=== PATIENT | female | born 1935 | race Caucasian/White ===

== ENCOUNTER → 2016-06-18 | Outpatient (CLI) | payer MEDICARE ==
[2016-06-18 19:30] LABS: Basophils % (A) 0 %; CHCM 30.6; Eosinophils # (A) 0.3 k/uL (0-0.7); Eosinophils % (A) 3 %; HCT 39.4 % (34.0-46.0); HDW 2.39; HGB 11.8 gm/dL (11.4-16.0); Hypochromasia Slight; Luc # (Auto) 0.13; Luc % (Auto) 1; Lymphocytes # (A) 2.1 k/uL (1.0-4.8); Lymphocytes % (A) 22 %; MCH 26.6 pg (25.0-35.0); MCHC 30.1 g/dL (31.0-37.0); MCV 88.4 fL (80.0-100.0); Mean Platelet Volume 7.9; Monocytes # (A) 0.4 k/uL (0-1.0); Monocytes % (A) 5 %; Neutrophils # (A) 6.4 k/uL (1.3-7.7); Neutrophils % (A) 69 %; RBC 4.45 m/uL (3.80-5.40); RDW 14.6 % (11.5-15.5); WBC 9.4 k/uL (3.8-10.6); WBC (Perox) 10.21
[2016-06-18 19:36] LABS: ALT 26 U/L (9-52); AST 17 U/L (14-36); Alkaline Phosphatase 97 U/L (38-126); Anion Gap 12 mmol/L; Blood Urea Nitrogen 19 mg/dL (7-17); Calcium 10.1 mg/dL (8.4-10.2); Carbon Dioxide 28 mmol/L (22-30); Chloride 102 mmol/L (98-107); Cholesterol 206 mg/dL (<200); Glucose 122 mg/dL (74-99); HDL Cholesterol 39 mg/dL (40-60); Non-African American GFR(MDRD) >60 (>60 ml/min/1.73 sqM); Potassium 4.5 mmol/L (3.5-5.1); Sodium 142 mmol/L (137-145); Total Bilirubin 0.4 mg/dL (0.2-1.3); Total Protein 6.6 g/dL (6.3-8.2); Triglycerides 148 mg/dL (<150)
== END | disposition home or self-care (01) ==
LOC: MMGSC 14:20
PROVIDERS: ATTEND Family Medicine
DX: E11.9 Type 2 diabetes mellitus without complications (principal); I10 Essential (primary) hypertension
CPT/HCPCS: 36415; 80053; 80061; 83036; 84439; 84443; 85025; 99203

== ENCOUNTER 2016-09-21 12:17 | Day surgery (SDC) | payer MEDICARE ==
[2016-09-17 16:06] VITALS: BMI 44.3
[~2016-09-21 12:17] MED LIST: LACTATED RINGERS 1,000 ML IV SCH; LIDOCAINE 1% 20 ML VIAL (10MG/ML) FOR IV START INTRADERMA PRN
[2016-09-21] MEDS: PHENYLEPHRINE 10% OPHTH DROPS 5 ML BTL OP ONE ×3 (14:18→14:31)
[2016-09-21 14:20] VITALS: RESP 18; TEMP 97.9
[2016-09-21] MEDS: CYCLOPENTOLATE 1% OPHTH SOLN 2 ML BTL OP ONE ×3 (14:21→14:33)
[2016-09-21] MEDS: FLURBIPROFEN 0.03% OPHTH DROPS 2.5 ML BTL OP ONE ×2 (14:23→14:29)
[2016-09-21] MEDS ORDERED: BALANCED SALT IRRIG SOLN COMB2 15 ML IRRIG.SOLN IRRIGATION ONE (14:39)
[2016-09-21] MEDS ORDERED: HYALURONATE SODIUM INTRAOCULAR 1 EACH SYRINGE (10MG/ML) INTRAOCULA ONE (14:39)
[2016-09-21 14:42] LABS: Glucose,Whole Blood 117 mg/dL (75-99)
[2016-09-21] MEDS ORDERED: EPINEPHrine (PF) 0.5 ML in BALANCED SALT IRRIG SOLN COMB2 500 ML IRRIGATION ONE (14:42)
[2016-09-21] MEDS ORDERED: PROPOFOL 10 MG/ML 20 ML VIAL IV ONE (14:42)
--- NOTE | 2016-09-21 15:04 | P.OP ---
Date of Procedure: 09/21/16 Preoperative Diagnosis: Postoperative Diagnosis: Procedure(s) Performed: PREOPERATIVE DIAGNOSIS: Cataract, right eye. POSTOPERATIVE DIAGNOSIS: Cataract, right eye. OPERATION: Phacoemulsification cataract, right eye. DESCRIPTION OF PROCEDURE: The patient was taken to the preoperative holding area. Intravenous Propofol was given so as to bring about adequate sedation. The following mixture was given for local anesthesia: 5 mL of 2% lidocaine, 5 mL of 0.75% Marcaine, and 1 mL of Wydase. Approximately 4 mL was injected in the retrobulbar space of the surgical eye. Additional 1 mL was then directed to the temporal area of the surgical eye. This was performed to allow adequate neurological block of the facial muscles. The patient was revived and then taken into the operative room. The patient was prepped and draped in the usual sterile manner for the operative eye. A lid speculum was put into position. The conjunctiva was resected back from the limbus in the 12 o'clock position. Bleeding was controlled with electrocautery. A #69 blade was then used and a half-thickness scleral incision approximately 1-mm posterior to the limbus was made on bare sclera. This was shelved in the clear cornea using a crescent knife. Next a 15-degree blade was used to make a stab incision at the 3 o' clock position at the corneolimbal interface. Keratome blade was then used and the superior wound was extended into the anterior chamber. Viscoelastic was injected into the anterior chamber and to maintain its form. Next, a cystotome was used and a continuous anterior capsulotomy was made without difficulty. Hydrodissection using a blunt cannula and BSS was performed. Phaco probe was then employed and a groove extending from 12 to 6 o'clock in the lens was created. A Hill wand was used through the stab incision so as to perform a divide and conquer technique. Next an irrigation aspiration probe was utilized and any residual cortex was removed from the eye. Again, viscoelastic was injected into the anterior chamber. An Cooper posterior chamber lens implant was placed in the cartridge and injected into the anterior chamber without difficulty. The ForSight Labsey hook was utilized to spin the lens into position and this was again performed without any difficulty. The irrigation and aspiration probe was again employed and any residual viscoelastic was removed from the eye. Then BSS was injected into the limbal stab incision and the anterior chamber re-inflated. The conjunctiva was reapproximated using electrocautery. One drop of 0.25% Timoptic was placed over the corneal along with TobraDex ophthalmic ointment. Two sterile patches and a Leone eye shield were taped into position. The patient was transported to the recovery room in stable condition. Implants: Pathology: none sent Condition: stable Disposition: same day Indications for Procedure: Operative Findings: Description of Procedure:
[2016-09-21 15:29] VITALS: BP 121/64; PULSE 80
[2016-09-21] MEDS ORDERED: TIMOLOL 0.5% OPHTH SOLN (PF) 0.2 ML DROPERETTE OP ONE (23:00)
[2016-09-21] MEDS ORDERED: BUPIVACAINE (PF) 0.75% 5 ML, LIDOCAINE 4% (PF) 5 ML, HYALURONIDASE, HUMAN RECOMB 150 UNIT MISCELLANE ONE ×3 (23:00)
[2016-09-21] MEDS ORDERED: GENTAMICIN/PREDNISOL AC OPHTH OINT 3.5GM OPHTHALMIC ONE (23:00)
== END 2016-09-21 15:50 | disposition home or self-care (01) ==
LOC: OR 12:17
PROVIDERS: ATTEND Ophthalmology
DX: H25.11 Age-related nuclear cataract, right eye (principal); E11.9 Type 2 diabetes mellitus without complications; I10 Essential (primary) hypertension; M19.90 Unspecified osteoarthritis, unspecified site; I69.351 Hemiplegia and hemiparesis following cerebral infarction affecting right dominant side; G47.33 Obstructive sleep apnea (adult) (pediatric); Z99.89 Dependence on other enabling machines and devices; E66.01 Morbid (severe) obesity due to excess calories; K21.9 Gastro-esophageal reflux disease without esophagitis; Z79.899 Other long term (current) drug therapy; Z79.891 Long term (current) use of opiate analgesic; Z79.84 Long term (current) use of oral hypoglycemic drugs; Z88.6 Allergy status to analgesic agent; Z88.8 Allergy status to other drugs, medicaments and biological substances
CPT/HCPCS: 66984; V2632; J2001; J3470; J0171; J2704

== ENCOUNTER → 2017-01-07 | Outpatient (CLI) | payer MEDICARE | END | disposition home or self-care (01) | LOC: LABPAT 11:36 | PROVIDERS: ATTEND Orthopaedic Surgery | DX: Z01.812 Encounter for preprocedural laboratory examination (principal) | CPT/HCPCS: 87070 ==

== ENCOUNTER → 2017-05-06 | Outpatient (CLI) | payer MEDICARE ==
[2017-05-06 20:35] LABS: Basophils # (A) 0.1 k/uL (0-0.2); Basophils % (A) 1 %; Eosinophils # (A) 0.2 k/uL (0-0.7); Eosinophils % (A) 2 %; HGB 11.9 gm/dL (11.4-16.0); Hypochromasia Marked; Lymphocytes # (A) 1.8 k/uL (1.0-4.8); Lymphocytes % (A) 17 %; MCH 23.5 pg (25.0-35.0); MCHC 29.6 g/dL (31.0-37.0); MCV 79.4 fL (80.0-100.0); Mean Platelet Volume 8.5; Monocytes # (A) 0.5 k/uL (0-1.0); Monocytes % (A) 5 %; Neutrophils % (A) 75 %; Platelet Count 342 k/uL (150-450); RBC 5.03 m/uL (3.80-5.40); RDW 14.9 % (11.5-15.5); WBC 10.6 k/uL (3.8-10.6)
[2017-05-06 21:00] LABS: Albumin 3.6 g/dL (3.5-5.0); Potassium 4.3 mmol/L (3.5-5.1); Total Bilirubin 0.4 mg/dL (0.2-1.3); Total Protein 6.4 g/dL (6.3-8.2)
[2017-05-07 04:47] LABS: Hemoglobin A1C 8.3 % (4.0-6.0)
== END ==
LOC: MMGSC 12:25
PROVIDERS: ATTEND Family Medicine
DX: E11.9 Type 2 diabetes mellitus without complications (principal); I48.91 Unspecified atrial fibrillation; E78.5 Hyperlipidemia, unspecified
CPT/HCPCS: 36415; 80053; 80061; 83036; 85025

== ENCOUNTER 2017-05-19 02:56 | Inpatient (IN) | payer MEDICARE ==
[2017-05-19] MEDS ORDERED: PANTOPRAZOLE 40 MG/10 ML VIAL IVP ONE (03:34)
[2017-05-19] MEDS ORDERED: SODIUM CHLORIDE 0.9% 1,000 ML IV ONE ×2 (03:34→13:44)
[2017-05-19] MEDS ORDERED: ONDANSETRON 4 MG/2 ML VIAL IVP STA (03:51)
--- NOTE | 2017-05-19 03:51 | ED ---
GI Bleed HPI - General Chief complaint: GI Bleed Stated complaint: Vomiting Time Seen by Provider: 05/19/17 03:29 Source: patient, family Mode of arrival: wheelchair Limitations: no limitations - History of Present Illness Initial comments: This is an 81-year-old female with a history of atrial fibrillation and CVA on L course who presents emergency department for coffee-ground emesis. The patient states that she was in her normal state of health yesterday until later in the afternoon when she started having some generalized malaise and not feeling well. She had 2 episodes of dark coffee ground emesis at home. She also had one dark loose bowel movement per family. She denies any lightheadedness however does admit to a little bit of dizziness. No chest pain or palpitations. No shortness of breath. States he does not have a history of peptic ulcer disease or GI bleed. Denies any abdominal discomfort. No other acute complaints at this time. - Related Data Home Medications Medication Instructions Recorded Confirmed Cyanocobalamin (Vitamin B-12) 1,000 mcg PO DAILY 09/17/16 01/18/17 [Vitamin B-12] Gabapentin [Neurontin] 300 mg PO BID 09/17/16 01/18/17 Hydrochlorothiazide 25 mg PO QAM 09/17/16 01/18/17 Insulin Glargine [Lantus] 38 unit SQ HS 09/17/16 01/18/17 LORazepam [Ativan] 1 mg PO TID PRN 09/17/16 01/18/17 Methocarbamol [Robaxin-750] 750 mg PO BID PRN 09/17/16 01/18/17 Sertraline HCl [Zoloft] 50 mg PO QAM 09/17/16 01/18/17 amLODIPine BESYLATE [Norvasc] 10 mg PO QAM 09/17/16 01/18/17 glipiZIDE [Glucotrol] 10 mg PO AC-BID 09/17/16 01/18/17 Albuterol Sulfate [Proair Hfa] 1 - 2 puff INHALATION RT-Q4H PRN 01/13/17 Apixaban [Eliquis] 5 mg PO BID 01/13/17 01/18/17 Fluticasone Nasal [place] [Flonase 2 spr EA NOSTRIL DAILY PRN 01/13/17 01/18/17 Nasal [place]] Furosemide [Lasix] 20 mg PO DAILY PRN 01/13/17 01/18/17 Metoprolol Tartrate [Lopressor] 25 mg PO HS 01/13/17 01/18/17 Metoprolol Tartrate [Lopressor] 50 mg PO QAM 01/13/17 01/18/17 Ramipril [Altace] 10 mg PO BID 01/13/17 01/18/17 Previous Rx's Medication Instructions Recorded oxyCODONE HCL/ACETAMINOPHEN 1 - 2 tab PO Q6HR PRN #60 tab 01/20/17 [Percocet 5-325 mg] Allergies Allergy/AdvReac Type Severity Reaction Status Date / Time atorvastatin AdvReac Unknown Verified 05/19/17 03:04 ibuprofen [From Motrin] AdvReac Abdominal Verified 05/19/17 03:04 Pain Lyrica Allergy Nystaigmus Uncoded 05/19/17 03:04 Review of Systems ROS Statement: Those systems with pertinent positive or pertinent negative responses have been documented in the HPI. ROS Other: All systems not noted in ROS Statement are negative. Past Medical History Past Medical History: Atrial Fibrillation, CVA/TIA, Diabetes Mellitus, Eye Disorder, Hyperlipidemia, Hypertension, Neurologic Disorder, Osteoarthritis (OA) , Sleep Apnea/CPAP/BIPAP Additional Past Medical History / Comment(s): Stroke in 2005, uses C-PAP daily. migraines History of Any Multi-Drug Resistant Organisms: MRSA Date of last positivie culture/infection: 12/2016 MDRO Source:: nasal Past Surgical History: Hysterectomy Additional Past Surgical History / Comment(s): R knee replacement, L foot surgery, Hemorrhoidectomy,rt cataract, LEFT KNEE ARTHROPLASTY, Past Anesthesia/Blood Transfusion Reactions: No Reported Reaction Additional Past Anesthesia/Blood Transfusion Reaction / Comment(s): no complications with prior blood transfusion Past Psychological History: No Psychological Hx Reported Smoking Status: Never smoker Past Alcohol Use History: None Reported Past Drug Use History: None Reported - Past Family History Mother Family Medical History: CVA/TIA Father Family Medical History: Myocardial Infarction ([place]) Additional Family Medical History / Comment(s): at age 59 General Exam - General Exam Comments Initial Comments: Constitutional: Awake alert Appears comfortable Head: Normocephalic atraumatic Eyes: no conjunctival injection No scleral icterus EOMI, no conjunctival pallor Neck: No JVD Supple Heart: Regular rate rhythm normal S1-S2 no murmurs Lungs: Clear to auscultation bilaterally No wheezing No rales Abdomen: Soft nondistended nontender Extremities: Non edematous DP pulses intact Radial pulses intact Neuro: A&Ox3 No focal neurologic deficits Psych: Appropriate mood and affect Limitations: no limitations Course Vital Signs 05/19/17 05/19/17 05/19/17 02:59 04:21 05:51 Temperature 98.1 F 99.1 F Pulse Rate 84 70 70 Respiratory 18 18 18 Rate Blood Pressure 127/58 153/81 156/67 O2 Sat by Pulse 99 100 100 Oximetry - Reevaluation(s) Reevaluation #1: 05/19/17 03:51 EKG is showing what appears to be sinus rhythm with a rate of 79. P waves are difficult to make out however V1 does appear to have regular P waves. QTC is 458. There is no abnormal ST segment changes or T-wave inversions. Other intervals appear normal and no ectopy. Medical Decision Making - Medical Decision Making This is [id number] female who presents emergency department for coffee-ground emesis. Hemoglobin was noted to be 2 g lower than normal. Patient also has mild acute kidney injury. She was seen vomiting coffee grounds in the emergency department. Was started on protonix. Initial lactate was 4.2 which improved to 2.5 after IV fluids. The patient is hemodynamically stable. Will admit to general medical floor at this time. - Lab Data Result diagrams: 05/19/17 03:35 05/19/17 03:35 Lab Results 05/19/17 05/19/17 05/19/17 Range/Units 03:35 03:35 03:35 WBC 15.3 H (3.8-10.6) k/uL RBC 3.79 L (3.80-5.40) m/uL Hgb 9.0 L D (11.4-16.0) gm/dL Hct 29.6 L (34.0-46.0) % MCV 78.3 L (80.0-100.0) fL MCH 23.7 L (25.0-35.0) pg MCHC 30.3 L (31.0-37.0) g/dL RDW 16.7 H (11.5-15.5) % Plt Count 355 (150-450) k/uL Neutrophils % 88 % Lymphocytes % 8 % Monocytes % 2 % Eosinophils % 1 % Basophils % 0 % Neutrophils # 13.5 H (1.3-7.7) k/uL Lymphocytes # 1.2 (1.0-4.8) k/uL Monocytes # 0.3 (0-1.0) k/uL Eosinophils # 0.1 (0-0.7) k/uL Basophils # 0.0 (0-0.2) k/uL Hypochromasia Moderate Anisocytosis Slight Microcytosis Slight PT (9.0-12.0) sec INR (<1.2) APTT (22.0-30.0) sec Sodium 139 (137-145) mmol/L Potassium 5.4 H (3.5-5.1) mmol/L Chloride 103 (98-107) mmol/L Carbon Dioxide 21 L (22-30) mmol/L Anion Gap 15 mmol/L BUN 58 H (7-17) mg/dL Creatinine 1.10 H (0.52-1.04) mg/dL Est GFR (CKD-EPI)AfAm 55 (>60 ml/min/1.73 sqM) Est GFR (CKD-EPI)NonAf 48 (>60 ml/min/1.73 sqM) Glucose 380 H (74-99) mg/dL Plasma Lactic Acid Newton (0.7-2.0) mmol/L Calcium 9.4 (8.4-10.2) mg/dL Magnesium 1.7 (1.6-2.3) mg/dL Total Bilirubin 0.3 (0.2-1.3) mg/dL AST 13 L (14-36) U/L ALT 16 (9-52) U/L Alkaline Phosphatase 82 (38-126) U/L CK-MB (CK-2) 1.3 (0.0-2.4) ng/mL Troponin I <0.012 (0.000-0.034) ng/mL Total Protein 5.9 L (6.3-8.2) g/dL Albumin 3.5 (3.5-5.0) g/dL Lipase 63 (23-300) U/L Blood Type Blood Type Recheck Antibody Screen Spec Expiration Date 05/19/17 05/19/17 05/19/17 Range/Units 03:35 03:35 03:35 WBC (3.8-10.6) k/uL RBC (3.80-5.40) m/uL Hgb (11.4-16.0) gm/dL Hct (34.0-46.0) % MCV (80.0-100.0) fL MCH (25.0-35.0) pg MCHC (31.0-37.0) g/dL RDW (11.5-15.5) % Plt Count (150-450) k/uL Neutrophils % % Lymphocytes % % Monocytes % % Eosinophils % % Basophils % % Neutrophils # (1.3-7.7) k/uL Lymphocytes # (1.0-4.8) k/uL Monocytes # (0-1.0) k/uL Eosinophils # (0-0.7) k/uL Basophils # (0-0.2) k/uL Hypochromasia Anisocytosis Microcytosis PT 10.8 (9.0-12.0) sec INR 1.1 (<1.2) APTT 22.7 (22.0-30.0) sec Sodium (137-145) mmol/L Potassium (3.5-5.1) mmol/L Chloride (98-107) mmol/L Carbon Dioxide (22-30) mmol/L Anion Gap mmol/L BUN (7-17) mg/dL Creatinine (0.52-1.04) mg/dL Est GFR (CKD-EPI)AfAm (>60 ml/min/1.73 sqM) Est GFR (CKD-EPI)NonAf (>60 ml/min/1.73 sqM) Glucose (74-99) mg/dL Plasma Lactic Acid Newton 4.2 H* (0.7-2.0) mmol/L Calcium (8.4-10.2) mg/dL Magnesium (1.6-2.3) mg/dL Total Bilirubin (0.2-1.3) mg/dL AST (14-36) U/L ALT (9-52) U/L Alkaline Phosphatase (38-126) U/L CK-MB (CK-2) (0.0-2.4) ng/mL Troponin I (0.000-0.034) ng/mL Total Protein (6.3-8.2) g/dL Albumin (3.5-5.0) g/dL Lipase (23-300) U/L Blood Type O Positive Blood Type Recheck No Antibody Screen NEGATIVE Spec Expiration Date 05/22/2017233405/19/17 Range/Units 05:00 WBC (3.8-10.6) k/uL RBC (3.80-5.40) m/uL Hgb (11.4-16.0) gm/dL Hct (34.0-46.0) % MCV (80.0-100.0) fL MCH (25.0-35.0) pg MCHC (31.0-37.0) g/dL RDW (11.5-15.5) % Plt Count (150-450) k/uL Neutrophils % % Lymphocytes % % Monocytes % % Eosinophils % % Basophils % % Neutrophils # (1.3-7.7) k/uL Lymphocytes # (1.0-4.8) k/uL Monocytes # (0-1.0) k/uL Eosinophils # (0-0.7) k/uL Basophils # (0-0.2) k/uL Hypochromasia Anisocytosis Microcytosis PT (9.0-12.0) sec INR (<1.2) APTT (22.0-30.0) sec Sodium (137-145) mmol/L Potassium (3.5-5.1) mmol/L Chloride (98-107) mmol/L Carbon Dioxide (22-30) mmol/L Anion Gap mmol/L BUN (7-17) mg/dL Creatinine (0.52-1.04) mg/dL Est GFR (CKD-EPI)AfAm (>60 ml/min/1.73 sqM) Est GFR (CKD-EPI)NonAf (>60 ml/min/1.73 sqM) Glucose (74-99) mg/dL Plasma Lactic Acid Newton 2.5 H* (0.7-2.0) mmol/L Calcium (8.4-10.2) mg/dL Magnesium (1.6-2.3) mg/dL Total Bilirubin (0.2-1.3) mg/dL AST (14-36) U/L ALT (9-52) U/L Alkaline Phosphatase (38-126) U/L CK-MB (CK-2) (0.0-2.4) ng/mL Troponin I (0.000-0.034) ng/mL Total Protein (6.3-8.2) g/dL Albumin (3.5-5.0) g/dL Lipase (23-300) U/L Blood Type Blood Type Recheck Antibody Screen Spec Expiration Date Disposition Clinical Impression: Upper GI bleed, Anemia Disposition: ADMITTED IP TO THIS [facility] Condition: Stable
[2017-05-19 03:56] LABS: Anisocytosis Slight; Basophils % (A) 0 %; Eosinophils # (A) 0.1 k/uL (0-0.7); Eosinophils % (A) 1 %; HCT 29.6 % (34.0-46.0); Hypochromasia Moderate; Lymphocytes # (A) 1.2 k/uL (1.0-4.8); Lymphocytes % (A) 8 %; MCH 23.7 pg (25.0-35.0); MCHC 30.3 g/dL (31.0-37.0); MCV 78.3 fL (80.0-100.0); Mean Platelet Volume 8.5; Microcytosis Slight; Monocytes # (A) 0.3 k/uL (0-1.0); Monocytes % (A) 2 %; Neutrophils # (A) 13.5 k/uL (1.3-7.7); Neutrophils % (A) 88 %; Platelet Count 355 k/uL (150-450); RBC 3.79 m/uL (3.80-5.40); RDW 16.7 % (11.5-15.5); WBC 15.3 k/uL (3.8-10.6)
[2017-05-19 04:11] LABS: Albumin 3.5 g/dL (3.5-5.0); Calcium 9.4 mg/dL (8.4-10.2); Magnesium 1.7 mg/dL (1.6-2.3); Potassium 5.4 mmol/L (3.5-5.1); Total Bilirubin 0.3 mg/dL (0.2-1.3); Total Protein 5.9 g/dL (6.3-8.2)
[2017-05-19 04:12] LABS: INR 1.1 (<1.2); Partial Thromboplastin Time 22.7 sec (22.0-30.0); Prothrombin Time 10.8 sec (9.0-12.0)
[2017-05-19] MEDS ORDERED: SODIUM CHLORIDE 0.9% 500 ML IV ONE (04:17)
[2017-05-19] MEDS ORDERED: NALOXONE 0.4 MG/ML 1 ML VIAL IV PRN (04:26)
[2017-05-19] MEDS: SODIUM CHLORIDE 0.9% 1,000 ML IV SCH (04:27)
[2017-05-19 04:29] LABS: Creatine Kinase MB 1.3 ng/mL (0.0-2.4); Troponin I <0.012 ng/mL (0.000-0.034)
--- NOTE | 2017-05-19 07:07 | P.HPIM ---
History of Present Illness H&P Date: 05/19/17 Chief Complaint: Coffee Ground emesis 81-year-old female with history of atrial fibrillation on anticoagulation. History of stroke wirh right residual weakness Patient presented due to sudden onset of coffee-ground emesis and feeling generalized weakness and malaise. Patient reports that she was at her normal status of health up until yesterday when suddenly she felt weak and tired and then had 2 episodes of coffee-ground vomiting without any associated abdominal pain. She then started feeling dizzy but denies any chest pain denies any shortness of breath denies any palpitations. She also had one episodes of loose dark stool. She denies having any history of GI bleed, however, she does report remote history of peptic ulcers in the past. denies taking any NSAIDs. Eliquis was started recently , 3 weeks ago for afib. In the emergency department, she was found to have dropped her hemoglobin 2 g below her baseline, and some of her electrolytes were abnormal along with lactic acidosis for which she received IV fluid resuscitation and admitted to the medical floor. Review of Systems Constitutional: Patient denies fever, denies chills, denies night sweating, denies significant weight changes Eyes: Patient denies visual changes, denies eye pain ENT: Patient denies ear pain, denies rhinorrhea, denies sore throat Cardiovascular: Patient denies chest pain, denies exertional dyspnea, denies peripheral leg edema, denies orthopnea, denies paroxysmal nocturnal dyspnea Respiratory:Patient denies cough, denies wheezing, denies shortness of breath Gastrointestinal: Patient denies diarrhea, denies constipation, denies nausea , denies abdominal pain, otherwise as mentioned in HPI Genitourinary: Patient denies dysuria, denies hematuria, denies changes in urinary habits, denies genital lesions Musculoskeletal: Patient reports generalized joint pains Psychiatric: Patient denies changes in mood or memory, denies suicidal ideation, denies anxiety Endocrine: Patient denies heat intolerance, denies cold intolerance, denies excessive thirst, denies polyuria Neurological: Patient denies focal neurologic deficits, denies weakness, denies numbness, denies tingling Hem/Lymphatic: Patient denies bleeding tendency, denies bruising, denies swollen lymph glands Allergic/Immun: Patient denies recent allergic reactions Skin: Patient denies rashes, denies pruritis, denies ulcers Past Medical History Past Medical History: Atrial Fibrillation, CVA/TIA, Diabetes Mellitus, Eye Disorder, Hyperlipidemia, Hypertension, Neurologic Disorder, Osteoarthritis (OA) , Sleep Apnea/CPAP/BIPAP Additional Past Medical History / Comment(s): Stroke in 2006, uses C-PAP daily. migraines History of Any Multi-Drug Resistant Organisms: MRSA Date of last positivie culture/infection: 12/2016 MDRO Source:: nasal Past Surgical History: Hysterectomy Additional Past Surgical History / Comment(s): R knee replacement, L foot surgery, Hemorrhoidectomy,rt cataract, LEFT KNEE ARTHROPLASTY, Past Anesthesia/Blood Transfusion Reactions: No Reported Reaction Additional Past Anesthesia/Blood Transfusion Reaction / Comment(s): no complications with prior blood transfusion Past Psychological History: No Psychological Hx Reported Smoking Status: Never smoker Past Alcohol Use History: None Reported Past Drug Use History: None Reported - Past Family History Mother Family Medical History: CVA/TIA Father Family Medical History: Myocardial Infarction ([place]) Additional Family Medical History / Comment(s): at age 59 Medications and Allergies Home Medications Medication Instructions Recorded Confirmed Type Cyanocobalamin (Vitamin B-12) 1,000 mcg PO DAILY 09/17/16 01/18/17 History [Vitamin B-12] Gabapentin [Neurontin] 300 mg PO BID 09/17/16 01/18/17 History Hydrochlorothiazide 25 mg PO QAM 09/17/16 01/18/17 History Insulin Glargine [Lantus] 38 unit SQ HS 09/17/16 01/18/17 History LORazepam [Ativan] 1 mg PO TID PRN 09/17/16 01/18/17 History Methocarbamol [Robaxin-750] 750 mg PO BID PRN 09/17/16 01/18/17 History Sertraline HCl [Zoloft] 50 mg PO QAM 09/17/16 01/18/17 History amLODIPine BESYLATE [Norvasc] 10 mg PO QAM 09/17/16 01/18/17 History glipiZIDE [Glucotrol] 10 mg PO AC-BID 09/17/16 01/18/17 History Albuterol Sulfate [Proair Hfa] 1 - 2 puff INHALATION RT-Q4H PRN 01/13/17 History Apixaban [Eliquis] 5 mg PO BID 01/13/17 01/18/17 History Fluticasone Nasal [place] [Flonase 2 spr EA NOSTRIL DAILY PRN 01/13/17 01/18/17 History Nasal [place]] Furosemide [Lasix] 20 mg PO DAILY PRN 01/13/17 01/18/17 History Metoprolol Tartrate [Lopressor] 25 mg PO HS 01/13/17 01/18/17 History Metoprolol Tartrate [Lopressor] 50 mg PO QAM 01/13/17 01/18/17 History Ramipril [Altace] 10 mg PO BID 01/13/17 01/18/17 History oxyCODONE HCL/ACETAMINOPHEN 1 - 2 tab PO Q6HR PRN #60 tab 01/20/17 Rx [Percocet 5-325 mg] Allergies Allergy/AdvReac Type Severity Reaction Status Date / Time atorvastatin AdvReac Unknown Verified 05/19/17 03:04 ibuprofen [From Motrin] AdvReac Abdominal Verified 05/19/17 03:04 Pain Lyrica Allergy Nystaigmus Uncoded 05/19/17 03:04 Physical Exam Vitals: Vital Signs Temp Pulse Resp BP Pulse Ox 05/19/17 05:51 99.1 F 70 18 156/67 100 05/19/17 04:21 70 18 153/81 100 05/19/17 02:59 98.1 F 84 18 127/58 99 Intake and Output 05/18/17 05/18/17 05/19/17 14:59 22:59 06:59 Other: Weight 128.367 kg Constitutional: No acute distress, conversant, pleasant Eyes: Anicteric sclerae, moist conjunctiva, no lid-lag Pupils equal round reactive to light ENMT: NC/AT Oropharynx clear, no erythema, exudates Neck: Supple, FROM, no masses, or JVD No carotid bruits No thyromegaly Lungs: Clear to auscultation Clear to percussion Normal respiratory effort, no accessory muscle use Cardiovascular: Heart regular in rate and rhythm, No murmurs, gallops, or rubs No peripheral edema Abdominal: Soft Nontender, no guarding, rebound or rigidity Abdomen moving with respiration Normoactive bowel sounds No hepatomegaly, No splenomegaly No palpable mass No abdominal wall hernia noted Skin: Normal temperature, tone, texture, turgor No induration No subcutaneous nodules No rash, lesions No ulcers Extremities: No digital cyanosis No clubbing Pedal pulses intact and symmetrical Radial pulses intact and symmetrical No calf tenderness Psychiatric: Alert and oriented to person, place and time Appropriate affect fair judgment Neuro Muscles Strength 5/5 LUE and LLE, 2/5 RUE, 4/5 RLE Sensation to light touch grossly present throughout Cranial nerves II-XII grossly intact No focal sensory deficits Lymphatics: no palpable cervical or supraclavicular , or inguinal lymph nodes Results CBC & Chem 7: 05/19/17 03:35 05/19/17 03:35 Labs: Abnormal Lab Results - Last 24 Hours (Table) 05/19/17 05/19/17 05/19/17 Range/Units 03:35 03:35 03:35 WBC 15.3 H (3.8-10.6) k/uL RBC 3.79 L (3.80-5.40) m/uL Hgb 9.0 L D (11.4-16.0) gm/dL Hct 29.6 L (34.0-46.0) % MCV 78.3 L (80.0-100.0) fL MCH 23.7 L (25.0-35.0) pg MCHC 30.3 L (31.0-37.0) g/dL RDW 16.7 H (11.5-15.5) % Neutrophils # 13.5 H (1.3-7.7) k/uL Potassium 5.4 H (3.5-5.1) mmol/L Carbon Dioxide 21 L (22-30) mmol/L BUN 58 H (7-17) mg/dL Creatinine 1.10 H (0.52-1.04) mg/dL Glucose 380 H (74-99) mg/dL Plasma Lactic Acid Newton 4.2 H* (0.7-2.0) mmol/L AST 13 L (14-36) U/L Total Protein 5.9 L (6.3-8.2) g/dL 05/19/17 Range/Units 05:00 WBC (3.8-10.6) k/uL RBC (3.80-5.40) m/uL Hgb (11.4-16.0) gm/dL Hct (34.0-46.0) % MCV (80.0-100.0) fL MCH (25.0-35.0) pg MCHC (31.0-37.0) g/dL RDW (11.5-15.5) % Neutrophils # (1.3-7.7) k/uL Potassium (3.5-5.1) mmol/L Carbon Dioxide (22-30) mmol/L BUN (7-17) mg/dL Creatinine (0.52-1.04) mg/dL Glucose (74-99) mg/dL Plasma Lactic Acid [place] 2.5 H* (0.7-2.0) mmol/L AST (14-36) U/L Total Protein (6.3-8.2) g/dL Assessment and Plan Assessment: 81-year-old female with history of atrial fibrillation on anticoagulation presented with sudden onset of coffee-ground emesis and black loose stool suspected to have GI bleeding admitted for further care. Patient does recall remote history of peptic ulcer disease in the past, however she denies taking any NSAIDs or aspirin. She was recently started on Eliquis 3 weeks ago for her underlying A. fib. Plan: #Acute symptomatic blood loss anemia #Acute GI bleeding Keep patient nothing by mouth Close monitoring of hemoglobin every 8 hours Protonix IV twice a day GI consultation Hold anticoagulation IV fluid hydration Close monitoring of vital signs #Acute kidney injury most likely secondary to ATN from prerenal hypoperfusion secondary to GI bleed Avoid nephrotoxic medications Hold MADELYN inhibitor's IV fluid hydration Monitor renal function #Acute hyperkalemia, asymptomatic Repeat renal function after IV fluid hydration EKG showed no acute changes related to hyperkalemia #Acute lactic acidosis secondary to hypoperfusion from GI bleeding This is resolved after aggressive IV fluid hydration #History of diabetes mellitus currently hyperglycemic Continue with monitoring of blood sugar before meals at bedtime Insulin sliding scale Levemir 10 units #Hypertension currently controlled Continue with metoprolol #Paroxysmal atrial fibrillation on anticoagulation currently rate controlled and in sinus rhythm Continue with metoprolol Anticoagulation on hold Continue with amiodarone #History of CVA With residual right-sided weakness #DVT prophylaxis with SCDs due to GI bleed Surrogate decision-maker: Patient daughter Dr. Kari Ugalde CODE STATUS full code DVT prophylaxis: SCD Discussed with: Patient, ER, RN Anticipated discharge:> [address]: Home A total of 55 minutes were spent on the care of this complex patient more than 50% of the time was spent in counseling and care coordination. Sepsis - Sepsis Sepsis Focused Exam #1 Sepsis Focused Exam Date: 05/19/17 Sepsis Focused Exam Time: 06:35 Sepsis Focused Exam Complete: Yes Vital Signs & RN Notes Reviewed: Yes Capillary Refill: < 2 Seconds: Fingers, Toes Peripheral Pulses: Normal: Radial (R), Radial (L), Posterior Tibialis (R), Posterior Tibialis (L), Dorsalis Pedis (R), Dorsalis Pedis (L) Skin Color: Normal for Patient Respiratory Exam: normal lung sounds Cardiovascular Exam: regular rate, normal rhythm, normal heart sounds
[2017-05-19 07:34] LABS: Glucose,Whole Blood 369 mg/dL (75-99)
[2017-05-19 08:05] LABS: Calcium 8.5 mg/dL (8.4-10.2); Potassium 5.8 mmol/L (3.5-5.1)
[2017-05-19 08:10] LABS: Anisocytosis Slight; Basophils % (A) 0 %; Eosinophils % (A) 0 %; HCT 25.2 % (34.0-46.0); Hypochromasia Moderate; Lymphocytes # (A) 1.3 k/uL (1.0-4.8); Lymphocytes % (A) 10 %; MCH 23.7 pg (25.0-35.0); MCHC 29.9 g/dL (31.0-37.0); MCV 79.2 fL (80.0-100.0); Mean Platelet Volume 7.2; Monocytes # (A) 0.3 k/uL (0-1.0); Monocytes % (A) 2 %; Neutrophils # (A) 11.9 k/uL (1.3-7.7); Neutrophils % (A) 87 %; Platelet Count 293 k/uL (150-450); RBC 3.18 m/uL (3.80-5.40); RDW 16.1 % (11.5-15.5); WBC 13.8 k/uL (3.8-10.6)
[2017-05-19 08:32] LABS: HGB 7.5 gm/dL (11.4-16.0)
[2017-05-19] MEDS: INSULIN DETEMIR 100 UNIT/ML 10 ML VIAL SQ SCH (08:38)
[2017-05-19] MEDS: MORPHINE SULFATE/PF 10MG/10ML VL IVP PRN (08:39)
[2017-05-19] MEDS: INSULIN ASPART 100 UNIT/ML 1 ML 10 ML VIAL SQ SCH ×4 (08:39→20:57)
[2017-05-19] MEDS: SERTRALINE 50 MG TAB PO SCH (08:43)
[2017-05-19] MEDS: AMIODARONE 200 MG TAB PO SCH ×2 (08:46→20:57)
[2017-05-19] MEDS ORDERED: METOPROLOL TARTRATE 50 MG TAB PO SCH ×2 (09:00)
[2017-05-19] MEDS ORDERED: amLODIPine 10 MG TAB PO SCH (09:00)
--- NOTE | 2017-05-19 09:53 | P.CONS ---
History of Present Illness - Reason for Consult Consult date: 05/19/17 Hematemesis Requesting physician: Osman Deras - History of Present Illness 81-year-old female with a history of atrial fibrillation maintained on Eliquis, asthma, CVA/TIA, diabetes mellitus, hypertension, morbid obesity, hyperlipidemia , sleep apnea, lower extremity cellulitis, anxiety and depression. Patient presented with acute hematemesis and melena started yesterday. Patient's last esophagus was at 1 PM yesterday. Last night around 9 PM she had a large blood tinged emesis mixed coffee-ground red, as well as a large melanotic stool earlier this morning. Minimal abdominal discomfort. No history of EGD or Suresh ulcer disease. Last colonoscopy 10-15 years ago. According to the patient's daughter hemoglobin was in the 11 range a few months ago. Admission hemoglobin 9.0. presently 7.5. MCV 79.2. INR 1.1. Platelet 293. BUN 61. Creatinine 1.0. Potassium 5.8. Sodium 139. No aspirin or NSAIDs. No alcoholism. Review of Systems Constitutional: Denies fever, chills, sweats, weight gain, or loss. HEENT: Negative for migraines, blurred vision or loss, earaches, drainage, tinnitus, oral mucosal lesions, dysphagia, or odynophagia. CARDIAC: Atrial fibrillation. Hypertension. Hyperlipidemia. Negative for chest pain, arrhythmias, or palpitation. RESPIRATORY: Asthma. Sleep apnea. Negative for shortness of breath, hemoptysis , cough, or sputum production. GI: See HPI for pertinent findings. : Negative for hematuria, urgency, frequency, polyuria, or dysuria. GYNc: Denies possibility of . Negative vaginal discharge. MUSCULOSKELETAL: Negative for muscle aches, swelling, arthritis, and arthralgias. NEUROLOGIC: History of CVA/TIA. ENDOCRINE: Diabetes mellitus. Negative for thyroid problems. SKIN: History of lower external cellulitis. Negative for rash or itching. PSYCHIATRIC: History of anxiety and depression. 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 History of Any Multi-Drug Resistant Organisms: MRSA Year Discovered:: 12/2016 MDRO Source:: nasal Past Surgical History: Hysterectomy, Joint Replacement, Orthopedic Surgery Additional Past Surgical History / Comment(s): Colonoscopy 10 yrs ago, R/L knee replacement, L foot surgery for bunionectomy, hemorrhoidectomy, rt cataract. Past Anesthesia/Blood Transfusion Reactions: No Reported Reaction Additional Past Anesthesia/Blood Transfusion Reaction / Comm: no complications with prior blood transfusion Smoking Status: Never smoker - Past Family History Mother Family Medical History: CVA/TIA Additional Family Medical History / Comment(s): Mother of a CVA at the age of 77yrs. Father Family Medical History: Myocardial Infarction ([place]) Additional Family Medical History / Comment(s): Father had his first [place] at the age of 49yrs and at age 59 from a [place]. Medications and Allergies Home Medications Medication Instructions Recorded Confirmed Type Cyanocobalamin (Vitamin B-12) 1,000 mcg PO DAILY 09/17/16 05/19/17 History [Vitamin B-12] Gabapentin [Neurontin] 300 mg PO BID 09/17/16 05/19/17 History Hydrochlorothiazide 25 mg PO QAM 09/17/16 05/19/17 History Insulin Glargine [Lantus] 40 unit SQ HS 09/17/16 05/19/17 History LORazepam [Ativan] 1 mg PO TID PRN 09/17/16 05/19/17 History Methocarbamol [Robaxin-750] 750 mg PO TID 09/17/16 05/19/17 History Sertraline HCl [Zoloft] 75 mg PO QAM 09/17/16 05/19/17 History amLODIPine BESYLATE [Norvasc] 10 mg PO QAM 09/17/16 05/19/17 History glipiZIDE [Glucotrol] 10 mg PO AC-BID 09/17/16 05/19/17 History Albuterol Sulfate [Proair Hfa] 2 puff INHALATION RT-Q4H PRN 01/13/17 05/19/17 History Apixaban [Eliquis] 5 mg PO BID 01/13/17 05/19/17 History Fluticasone Nasal [place] [Flonase 1 spr EA NOSTRIL DAILY PRN 01/13/17 05/19/17 History Nasal [place]] Furosemide [Lasix] 20 mg PO DAILY PRN 01/13/17 05/19/17 History Metoprolol Tartrate [Lopressor] 75 mg PO QAM 01/13/17 05/19/17 History Ramipril [Altace] 10 mg PO BID 01/13/17 05/19/17 History Amiodarone [Cordarone] 200 mg PO BID 05/19/17 05/19/17 History Cholecalciferol [Vitamin D3] 1,000 unit PO DAILY 05/19/17 05/19/17 History Metoprolol Tartrate [Lopressor] 50 mg PO HS 05/19/17 05/19/17 History oxyCODONE-APAP 5-325MG [Percocet 1 tab PO TID PRN 05/19/17 05/19/17 History 5-325 mg] Allergies Allergy/AdvReac Type Severity Reaction Status Date / Time atorvastatin Allergy Unknown Verified 05/19/17 07:43 pregabalin [From Lyrica] Allergy nystaigmus Verified 05/19/17 07:43 ibuprofen [From Motrin] AdvReac Abdominal Verified 05/19/17 07:43 Pain Physical Exam Vitals: Vital Signs Temp Pulse Pulse Resp BP BP Pulse Ox 05/19/17 07:00 99.1 F 87 16 109/52 97 05/19/17 05:51 99.1 F 70 18 156/67 100 05/19/17 04:21 70 18 153/81 100 05/19/17 02:59 98.1 F 84 18 127/58 99 Intake and Output 05/18/17 05/19/17 05/19/17 22:59 06:59 14:59 Other: Weight 128.367 kg General appearance: The patient is alert, oriented, in no acute distress. HET: Head is normocephalic and atraumatic. Pupils are equal and reactive. Oropharynx is clear without lesions. Neck: Supple without lymphadenopathy. Trachea midline. Heart: S1 S2. Regular rate and rhythm. Lungs: No crackles or wheezes are heard. Abdomen: Soft, nontender, nondistended with bowel sounds. No peritoneal signs. No palpable organomegaly or masses. Extremities: Normal skin color and turgor. No cyanosis, rash, ulceration, clubbing, or edema. Radial and pedal pulses are 2/4 bilaterally. Neurological: No focal deficits. Strength and sensation are grossly intact. Results CBC & Chem 7: 05/19/17 07:28 05/19/17 07:22 Labs: Abnormal Lab Results - Last 24 Hours (Table) 05/19/17 05/19/17 05/19/17 Range/Units 03:35 03:35 03:35 WBC 15.3 H (3.8-10.6) k/uL RBC 3.79 L (3.80-5.40) m/uL Hgb 9.0 L D (11.4-16.0) gm/dL Hct 29.6 L (34.0-46.0) % MCV 78.3 L (80.0-100.0) fL MCH 23.7 L (25.0-35.0) pg MCHC 30.3 L (31.0-37.0) g/dL RDW 16.7 H (11.5-15.5) % Neutrophils # 13.5 H (1.3-7.7) k/uL Potassium 5.4 H (3.5-5.1) mmol/L Chloride (98-107) mmol/L Carbon Dioxide 21 L (22-30) mmol/L BUN 58 H (7-17) mg/dL Creatinine 1.10 H (0.52-1.04) mg/dL Glucose 380 H (74-99) mg/dL POC Glucose (mg/dL) (75-99) mg/dL Plasma Lactic Acid Newton 4.2 H* (0.7-2.0) mmol/L AST 13 L (14-36) U/L Total Protein 5.9 L (6.3-8.2) g/dL 05/19/17 05/19/17 05/19/17 Range/Units 05:00 07:22 07:28 WBC 13.8 H (3.8-10.6) k/uL RBC 3.18 L (3.80-5.40) m/uL Hgb 7.5 L D (11.4-16.0) gm/dL Hct 25.2 L (34.0-46.0) % MCV 79.2 L (80.0-100.0) fL MCH 23.7 L (25.0-35.0) pg MCHC 29.9 L (31.0-37.0) g/dL RDW 16.1 H (11.5-15.5) % Neutrophils # 11.9 H (1.3-7.7) k/uL Potassium 5.8 H (3.5-5.1) mmol/L Chloride 108 H (98-107) mmol/L Carbon Dioxide 20 L (22-30) mmol/L BUN 61 H (7-17) mg/dL Creatinine (0.52-1.04) mg/dL Glucose 358 H (74-99) mg/dL POC Glucose (mg/dL) (75-99) mg/dL Plasma Lactic Acid Newton 2.5 H* (0.7-2.0) mmol/L AST (14-36) U/L Total Protein (6.3-8.2) g/dL 05/19/17 Range/Units 07:32 WBC (3.8-10.6) k/uL RBC (3.80-5.40) m/uL Hgb (11.4-16.0) gm/dL Hct (34.0-46.0) % MCV (80.0-100.0) fL MCH (25.0-35.0) pg MCHC (31.0-37.0) g/dL RDW (11.5-15.5) % Neutrophils # (1.3-7.7) k/uL Potassium (3.5-5.1) mmol/L Chloride (98-107) mmol/L Carbon Dioxide (22-30) mmol/L BUN (7-17) mg/dL Creatinine (0.52-1.04) mg/dL Glucose (74-99) mg/dL POC Glucose (mg/dL) 369 H (75-99) mg/dL Plasma Lactic Acid Newton (0.7-2.0) mmol/L AST (14-36) U/L Total Protein (6.3-8.2) g/dL Assessment and Plan (1) Upper GI bleed Narrative/Plan: Possible peptic ulcer disease Current Visit: Yes Status: Acute Code(s): K92.2 - GASTROINTESTINAL HEMORRHAGE, UNSPECIFIED SNOMED Code(s): 58125162 (2) Hematemesis Current Visit: Yes Status: Acute Code(s): K92.0 - HEMATEMESIS SNOMED Code( s): 7935309 (3) Melena Current Visit: Yes Status: Acute Code(s): K92.1 - MELENA SNOMED Code(s): 6179997 (4) Acute blood loss anemia Current Visit: Yes Status: Acute Code(s): D62 - ACUTE POSTHEMORRHAGIC ANEMIA SNOMED Code(s): 729237417 (5) Atrial fibrillation Current Visit: Yes Status: Chronic Code(s): I48.91 - UNSPECIFIED ATRIAL FIBRILLATION SNOMED Code(s): 92733906 (6) Morbid obesity with BMI of 40.0-44.9, adult Current Visit: Yes Status: Chronic Code(s): E66.01 - MORBID (SEVERE) OBESITY DUE TO EXCESS CALORIES; Z68.41 - BODY MASS INDEX (BMI) 40.0-44.9, ADULT SNOMED Code(s): 097281653 (7) Hyperkalemia Current Visit: Yes Status: Acute Code(s): E87.5 - HYPERKALEMIA SNOMED Code (s): 09628171 Plan: 1. EGD. Hold Eliquis. 2. Protonix 40 mg IV BID 3. NPO. 4. CBC every 6 hours. 5. Case discussed with Dr. Castillo and anesthesia/MDA; sodium bicarb being given for elevated potassium. Will proceed with EGD evaluation today. 6. General surgical consult; family requests Dr. Banda.
[2017-05-19] MEDS ORDERED: SODIUM BICARB 8.4% 50 ML SYR (1 MEQ/ML) IV ONE (10:00)
[2017-05-19] MEDS: ONDANSETRON 4 MG/2 ML VIAL IVP PRN ×2 (11:37→20:09)
[2017-05-19 11:41] LABS: Glucose,Whole Blood 300 mg/dL (75-99)
[2017-05-19] MEDS ORDERED: PROPOFOL 10 MG/ML 20 ML VIAL IV ONE (12:29)
[2017-05-19] MEDS ORDERED: LIDOCAINE 1% INJ 10MG/ML (20 ML MDV) ONE (12:29)
[2017-05-19] MEDS ORDERED: fentaNYL (PF) 50 MCG/ML 2 ML AMP ONE (12:29)
[2017-05-19] MEDS ORDERED: EPINEPHrine 10 ML SYRINGE (0.1 MG/ML) MISCELLANE ONE (13:11)
--- NOTE | 2017-05-19 13:49 | P.PCN ---
Date of Procedure: 05/19/17 Procedure(s) Performed: Procedure: Esophagogastroduodenoscopy and injection of 1 in 10,000 solution of epinephrine and applying growth probe to coagulate and actively bleeding prepyloric ulcer. Preoperative diagnosis upper GI bleeding and anemia. Postoperative diagnosis: Actively bleeding prepyloric ulcer controlled as described above. Preparation and sedation: Was provided by anesthesia. Brief clinical history:The patient is an 81-year-old female with a history of atrial fibrillation maintained on Eliquis, asthma, CVA/TIA, diabetes mellitus, hypertension, morbid obesity, hyperlipidemia, sleep apnea, lower extremity cellulitis, anxiety and depression. Patient presented with acute hematemesis and melena started yesterday. Patient's last episode was at 1 PM yesterday. Last night around 9 PM she had a large blood tinged emesis mixed coffee-ground red, as well as a large melanotic stool earlier this morning. Minimal abdominal discomfort. No history of EGD or peptic ulcer disease. Last colonoscopy 10-15 years ago. Hemoglobin was in the 11 range a few months ago. Admission hemoglobin 9.0. presently 7.5. MCV 79.2. INR 1.1. Platelet 293. BUN 61. Creatinine 1.0. Potassium 5.8. Sodium 139. No aspirin or NSAIDs. No alcoholism. Completed a course of Bactrim 2 days ago and was started on amiodarone around 2 weeks ago. The details are summarized in the history and physical and dictated consultations and progress notes. Procedure: With the patient on her left lateral decubitus position and after informed consent and adequate sedation, I passed the Olympus-GIF 160 video upper endoscope through the cricopharyngeus down the esophagus. The endoscope was then passed into the stomach which was insufflated with air and inspected in detail including the retroflex view in the cardia. Finally the endoscope was passed the pylorus into the duodenum. There was a prepyloric actively bleeding ulcer with a visible pumping vessel and there was significant amount of dark blood and clots in the stomach. The duodenal bulb showed fresh blood but there was no site of bleeding in the pyloric channel or duodenum. At this point, I proceeded to exchange the endoscope 40 therapeutic endoscope and I advised the area thoroughly and proceeded to inject 1 in 10,000 solution of epinephrine around the ulcer and in the center then I proceeded to use the cold probe to coagulate the ulcer and controlled the bleeding. I took pictures showing the ulcer before and after the intervention. The patient tolerated the procedure well and an 18-Maltese NG tube was placed in the right nostril and was connected to low intermittent suction. Plan: The patient was transferred to phase I recovery and. Try to transferred to a more closely monitored area of care for the next 24 hours. I will discuss with you and continue to follow with you with interest.
[2017-05-19] MEDS: fentaNYL (PF) 50 MCG/ML 2 ML AMP IV ONE ×2 (14:30→17:02)
[2017-05-19 14:37] LABS: Glucose,Whole Blood 312 mg/dL (75-99)
[2017-05-19] MEDS ORDERED: INSULIN ASPART 100 UNIT/ML 1 ML 10 ML VIAL SQ ONE (14:45)
[2017-05-19 15:14] LABS: Hemoglobin A1C 8.1 % (4.0-6.0)
[2017-05-19 16:17] LABS: Calcium 8.8 mg/dL (8.4-10.2); Potassium 5.4 mmol/L (3.5-5.1)
[2017-05-19 16:27] LABS: Anisocytosis Slight; Basophils # (A) 0.1 k/uL (0-0.2); Basophils % (A) 0 %; Eosinophils % (A) 0 %; HCT 22.6 % (34.0-46.0); Hypochromasia Marked; Lymphocytes # (A) 1.6 k/uL (1.0-4.8); Lymphocytes % (A) 11 %; MCH 23.9 pg (25.0-35.0); MCHC 29.9 g/dL (31.0-37.0); Mean Platelet Volume 7.8; Monocytes # (A) 0.5 k/uL (0-1.0); Monocytes % (A) 3 %; Neutrophils # (A) 12.3 k/uL (1.3-7.7); Neutrophils % (A) 84 %; Platelet Count 321 k/uL (150-450); RBC 2.83 m/uL (3.80-5.40); RDW 16.2 % (11.5-15.5); WBC 14.7 k/uL (3.8-10.6)
[2017-05-19 16:34] LABS: HGB 6.8 gm/dL (11.4-16.0)
--- NOTE | 2017-05-19 16:55 | P.GSCN ---
History of Present Illness Consult date: 05/19/17 Reason for Consult: Bleeding gastric ulcer History of present illness: Patient was doing fairly well until yesterday evening. Around 9:00 the patient had an episode of nausea and coffee-ground emesis. A smaller emesis occurred shortly following that. Around midnight she had a large melanotic stool. She was resistant to come to the hospital until shortly after that. The patient is on eloquis for A. fib. Last dose yesterday morning. Patient has no history of upper GI bleed. Her hemoglobin dropped from 97.5 and most recently 6.8. She underwent an upper endoscopy by GI today which showed a bleeding prepyloric gastric ulcer. This bleeding was controlled using epinephrine injection and cauterization. She is an ICU patient currently in the recovery room of the operating room. She still feels weak. No reversal agents for the eloquis was provided. Review of Systems The patient denies any acute changes in vision or hearing, no dysphagia or odynophagia, no chest pain or shortness of breath, no dysuria or hematuria, no headache, no runny nose, no unexplained weight loss Past Medical History Past Medical History: Atrial Fibrillation, Asthma, CVA/TIA, Diabetes Mellitus, Eye Disorder, Hyperlipidemia, Hypertension, Neurologic Disorder, Osteoarthritis (OA), Pneumonia, Sleep Apnea/CPAP/BIPAP Additional Past Medical History / Comment(s): Recent R medial leg cellulitis- just finished bactrim 2 days ago, Afib discovered 12/2016 with preop EKG, 2005 CVA with R arm/R leg severe weakness, IDDM type II, neuropathy, incontinence urine and rarely stool, L eye cataract, arthritis bilateral knees, back and neck , migraines, DDD, DONG with Cpap, asthmatic bronchitis. History of Any Multi-Drug Resistant Organisms: MRSA Year Discovered:: 12/2016 MDRO Source:: nasal Past Surgical History: Hysterectomy, Joint Replacement, Orthopedic Surgery Additional Past Surgical History / Comment(s): Colonoscopy 10 yrs ago, R/L knee replacement, L foot surgery for bunionectomy, hemorrhoidectomy, rt cataract. Past Anesthesia/Blood Transfusion Reactions: No Reported Reaction Additional Past Anesthesia/Blood Transfusion Reaction / Comm: no complications with prior blood transfusion Smoking Status: Never smoker - Past Family History Mother Family Medical History: CVA/TIA Additional Family Medical History / Comment(s): Mother of a CVA at the age of 77yrs. Father Family Medical History: Myocardial Infarction ([place]) Additional Family Medical History / Comment(s): Father had his first [place] at the age of 49yrs and at age 59 from a [place]. Medications and Allergies Home Medications Medication Instructions Recorded Confirmed Type Cyanocobalamin (Vitamin B-12) 1,000 mcg PO DAILY 09/17/16 05/19/17 History [Vitamin B-12] Gabapentin [Neurontin] 300 mg PO BID 09/17/16 05/19/17 History Hydrochlorothiazide 25 mg PO QAM 09/17/16 05/19/17 History Insulin Glargine [Lantus] 40 unit SQ HS 09/17/16 05/19/17 History LORazepam [Ativan] 1 mg PO TID PRN 09/17/16 05/19/17 History Methocarbamol [Robaxin-750] 750 mg PO TID 09/17/16 05/19/17 History Sertraline HCl [Zoloft] 75 mg PO QAM 09/17/16 05/19/17 History amLODIPine BESYLATE [Norvasc] 10 mg PO QAM 09/17/16 05/19/17 History glipiZIDE [Glucotrol] 10 mg PO AC-BID 09/17/16 05/19/17 History Albuterol Sulfate [Proair Hfa] 2 puff INHALATION RT-Q4H PRN 01/13/17 05/19/17 History Apixaban [Eliquis] 5 mg PO BID 01/13/17 05/19/17 History Fluticasone Nasal [place] [Flonase 1 spr EA NOSTRIL DAILY PRN 01/13/17 05/19/17 History Nasal [place]] Furosemide [Lasix] 20 mg PO DAILY PRN 01/13/17 05/19/17 History Metoprolol Tartrate [Lopressor] 75 mg PO QAM 01/13/17 05/19/17 History Ramipril [Altace] 10 mg PO BID 01/13/17 05/19/17 History Amiodarone [Cordarone] 200 mg PO BID 05/19/17 05/19/17 History Cholecalciferol [Vitamin D3] 1,000 unit PO DAILY 05/19/17 05/19/17 History Metoprolol Tartrate [Lopressor] 50 mg PO HS 05/19/17 05/19/17 History oxyCODONE-APAP 5-325MG [Percocet 1 tab PO TID PRN 05/19/17 05/19/17 History 5-325 mg] Allergies Allergy/AdvReac Type Severity Reaction Status Date / Time atorvastatin Allergy Unknown Verified 05/19/17 07:43 pregabalin [From Lyrica] Allergy nystaigmus Verified 05/19/17 07:43 ibuprofen [From Motrin] AdvReac Abdominal Verified 05/19/17 07:43 Pain Surgical - Exam Vital Signs Temp Pulse Resp BP Pulse Ox 98.1 F 84 18 127/58 99 05/19/17 02:59 05/19/17 02:59 05/19/17 02:59 05/19/17 02:59 05/19/17 02:59 Physical exam: General: Well-developed, well-nourished, appears fatigued and somewhat pale HEENT: Normocephalic, sclerae nonicteric Abdomen: Nontender, nondistended Extremities: Right lower extremity paresis with edema Neuro: Alert and oriented Results - Labs 05/19/17 15:30 05/19/17 15:30 Abnormal Lab Results - Last 24 Hours (Table) 05/19/17 05/19/17 05/19/17 Range/Units 03:35 03:35 03:35 WBC 15.3 H (3.8-10.6) k/uL RBC 3.79 L (3.80-5.40) m/uL Hgb 9.0 L D (11.4-16.0) gm/dL Hct 29.6 L (34.0-46.0) % MCV 78.3 L (80.0-100.0) fL MCH 23.7 L (25.0-35.0) pg MCHC 30.3 L (31.0-37.0) g/dL RDW 16.7 H (11.5-15.5) % Neutrophils # 13.5 H (1.3-7.7) k/uL Potassium 5.4 H (3.5-5.1) mmol/L Chloride (98-107) mmol/L Carbon Dioxide 21 L (22-30) mmol/L BUN 58 H (7-17) mg/dL Creatinine 1.10 H (0.52-1.04) mg/dL Glucose 380 H (74-99) mg/dL POC Glucose (mg/dL) (75-99) mg/dL Hemoglobin A1c (4.0-6.0) % Plasma Lactic Acid Newton 4.2 H* (0.7-2.0) mmol/L AST 13 L (14-36) U/L Total Protein 5.9 L (6.3-8.2) g/dL Crossmatch 05/19/17 05/19/17 05/19/17 Range/Units 03:35 05:00 07:22 WBC (3.8-10.6) k/uL RBC (3.80-5.40) m/uL Hgb (11.4-16.0) gm/dL Hct (34.0-46.0) % MCV (80.0-100.0) fL MCH (25.0-35.0) pg MCHC (31.0-37.0) g/dL RDW (11.5-15.5) % Neutrophils # (1.3-7.7) k/uL Potassium 5.8 H (3.5-5.1) mmol/L Chloride 108 H (98-107) mmol/L Carbon Dioxide 20 L (22-30) mmol/L BUN 61 H (7-17) mg/dL Creatinine (0.52-1.04) mg/dL Glucose 358 H (74-99) mg/dL POC Glucose (mg/dL) (75-99) mg/dL Hemoglobin A1c (4.0-6.0) % Plasma Lactic Acid Newton 2.5 H* (0.7-2.0) mmol/L AST (14-36) U/L Total Protein (6.3-8.2) g/dL Crossmatch See Detail 05/19/17 05/19/17 05/19/17 Range/Units 07:28 07:28 07:32 WBC 13.8 H (3.8-10.6) k/uL RBC 3.18 L (3.80-5.40) m/uL Hgb 7.5 L D (11.4-16.0) gm/dL Hct 25.2 L (34.0-46.0) % MCV 79.2 L (80.0-100.0) fL MCH 23.7 L (25.0-35.0) pg MCHC 29.9 L (31.0-37.0) g/dL RDW 16.1 H (11.5-15.5) % Neutrophils # 11.9 H (1.3-7.7) k/uL Potassium (3.5-5.1) mmol/L Chloride (98-107) mmol/L Carbon Dioxide (22-30) mmol/L BUN (7-17) mg/dL Creatinine (0.52-1.04) mg/dL Glucose (74-99) mg/dL POC Glucose (mg/dL) 369 H (75-99) mg/dL Hemoglobin A1c 8.1 H (4.0-6.0) % Plasma Lactic Acid Newton (0.7-2.0) mmol/L AST (14-36) U/L Total Protein (6.3-8.2) g/dL Crossmatch 05/19/17 05/19/17 05/19/17 Range/Units 11:37 14:36 15:30 WBC 14.7 H (3.8-10.6) k/uL RBC 2.83 L (3.80-5.40) m/uL Hgb 6.8 L* (11.4-16.0) gm/dL Hct 22.6 L (34.0-46.0) % MCV (80.0-100.0) fL MCH 23.9 L (25.0-35.0) pg MCHC 29.9 L (31.0-37.0) g/dL RDW 16.2 H (11.5-15.5) % Neutrophils # (1.3-7.7) k/uL Potassium (3.5-5.1) mmol/L Chloride (98-107) mmol/L Carbon Dioxide (22-30) mmol/L BUN (7-17) mg/dL Creatinine (0.52-1.04) mg/dL Glucose (74-99) mg/dL POC Glucose (mg/dL) 300 H 312 H (75-99) mg/dL Hemoglobin A1c (4.0-6.0) % Plasma Lactic Acid [place] (0.7-2.0) mmol/L AST (14-36) U/L Total Protein (6.3-8.2) g/dL Crossmatch 05/19/17 Range/Units 15:30 WBC (3.8-10.6) k/uL RBC (3.80-5.40) m/uL Hgb (11.4-16.0) gm/dL Hct (34.0-46.0) % MCV (80.0-100.0) fL MCH (25.0-35.0) pg MCHC (31.0-37.0) g/dL RDW (11.5-15.5) % Neutrophils # (1.3-7.7) k/uL Potassium 5.4 H (3.5-5.1) mmol/L Chloride 109 H (98-107) mmol/L Carbon Dioxide 21 L (22-30) mmol/L BUN 65 H (7-17) mg/dL Creatinine (0.52-1.04) mg/dL Glucose 287 H (74-99) mg/dL POC Glucose (mg/dL) (75-99) mg/dL Hemoglobin A1c (4.0-6.0) % Plasma Lactic Acid Newton (0.7-2.0) mmol/L AST (14-36) U/L Total Protein (6.3-8.2) g/dL Crossmatch Diabetes panel 05/19/17 05/19/17 05/19/17 Range/Units 03:35 07:22 07:28 Sodium 139 139 (137-145) mmol/L Potassium 5.4 H 5.8 H (3.5-5.1) mmol/L Chloride 103 108 H (98-107) mmol/L Carbon Dioxide 21 L 20 L (22-30) mmol/L BUN 58 H 61 H (7-17) mg/dL Creatinine 1.10 H 1.04 (0.52-1.04) mg/dL Glucose 380 H 358 H (74-99) mg/dL Hemoglobin A1c 8.1 H (4.0-6.0) % Calcium 9.4 8.5 (8.4-10.2) mg/dL AST 13 L (14-36) U/L ALT 16 (9-52) U/L Alkaline Phosphatase 82 (38-126) U/L Total Protein 5.9 L (6.3-8.2) g/dL Albumin 3.5 (3.5-5.0) g/dL 05/19/17 Range/Units 15:30 Sodium 141 (137-145) mmol/L Potassium 5.4 H (3.5-5.1) mmol/L Chloride 109 H (98-107) mmol/L Carbon Dioxide 21 L (22-30) mmol/L BUN 65 H (7-17) mg/dL Creatinine 1.00 (0.52-1.04) mg/dL Glucose 287 H (74-99) mg/dL Hemoglobin A1c (4.0-6.0) % Calcium 8.8 (8.4-10.2) mg/dL AST (14-36) U/L ALT (9-52) U/L Alkaline Phosphatase (38-126) U/L Total Protein (6.3-8.2) g/dL Albumin (3.5-5.0) g/dL Calcium panel 05/19/17 05/19/17 05/19/17 Range/Units 03:35 07:22 15:30 Calcium 9.4 8.5 8.8 (8.4-10.2) mg/dL Albumin 3.5 (3.5-5.0) g/dL Pituitary panel 05/19/17 05/19/17 05/19/17 Range/Units 03:35 07:22 15:30 Sodium 139 139 141 (137-145) mmol/L Potassium 5.4 H 5.8 H 5.4 H (3.5-5.1) mmol/L Chloride 103 108 H 109 H (98-107) mmol/L Carbon Dioxide 21 L 20 L 21 L (22-30) mmol/L BUN 58 H 61 H 65 H (7-17) mg/dL Creatinine 1.10 H 1.04 1.00 (0.52-1.04) mg/dL Glucose 380 H 358 H 287 H (74-99) mg/dL Calcium 9.4 8.5 8.8 (8.4-10.2) mg/dL Adrenal panel 05/19/17 05/19/17 05/19/17 Range/Units 03:35 07:22 15:30 Sodium 139 139 141 (137-145) mmol/L Potassium 5.4 H 5.8 H 5.4 H (3.5-5.1) mmol/L Chloride 103 108 H 109 H (98-107) mmol/L Carbon Dioxide 21 L 20 L 21 L (22-30) mmol/L BUN 58 H 61 H 65 H (7-17) mg/dL Creatinine 1.10 H 1.04 1.00 (0.52-1.04) mg/dL Glucose 380 H 358 H 287 H (74-99) mg/dL Calcium 9.4 8.5 8.8 (8.4-10.2) mg/dL Total Bilirubin 0.3 (0.2-1.3) mg/dL AST 13 L (14-36) U/L ALT 16 (9-52) U/L Alkaline Phosphatase 82 (38-126) U/L Total Protein 5.9 L (6.3-8.2) g/dL Albumin 3.5 (3.5-5.0) g/dL Assessment and Plan (1) Upper GI bleed Narrative/Plan: Given the recent hemoglobin of 6.8 advise transfusion of 1 unit of packed red blood cells. Continue nasogastric tube to low intermittent suction. Monitor hemoglobin closely. Surgical options discussed with the patient and her daughter. If bleeding recurs will discuss with GI regarding possible repeat endoscopy with clip placement. Current Visit: Yes Status: Acute Code(s): K92.2 - GASTROINTESTINAL HEMORRHAGE, UNSPECIFIED SNOMED Code(s): 11263322
[2017-05-19 16:57] LABS: Polychromasia Present
[2017-05-19 17:29] LABS: Glucose,Whole Blood 296 mg/dL (75-99)
[2017-05-19 18:32] LABS: Glucose,Whole Blood 257 mg/dL (75-99)
[2017-05-19 20:44] LABS: Glucose,Whole Blood 241 mg/dL (75-99)
[2017-05-19] MEDS: PANTOPRAZOLE 40 MG/10 ML VIAL IVP SCH (20:57)
[2017-05-19] MEDS ORDERED: METOPROLOL TARTRATE 25 MG TAB PO SCH (21:00)
[2017-05-19 22:27] LABS: Anisocytosis Slight; Basophils # (A) 0.1 k/uL (0-0.2); Basophils % (A) 0 %; Eosinophils % (A) 0 %; HCT 25.7 % (34.0-46.0); HGB 7.7 gm/dL (11.4-16.0); Hypochromasia Marked; Lymphocytes # (A) 2.8 k/uL (1.0-4.8); Lymphocytes % (A) 20 %; MCH 23.8 pg (25.0-35.0); MCHC 29.8 g/dL (31.0-37.0); MCV 79.9 fL (80.0-100.0); Mean Platelet Volume 8.5; Microcytosis Slight; Monocytes # (A) 0.7 k/uL (0-1.0); Monocytes % (A) 5 %; Neutrophils # (A) 10.5 k/uL (1.3-7.7); Neutrophils % (A) 73 %; Platelet Count 274 k/uL (150-450); RBC 3.21 m/uL (3.80-5.40); RDW 17.1 % (11.5-15.5); WBC 14.3 k/uL (3.8-10.6)
[2017-05-20 04:58] LABS: Anisocytosis Slight; Basophils # (A) 0.1 k/uL (0-0.2); Basophils % (A) 0 %; Eosinophils # (A) 0.1 k/uL (0-0.7); Eosinophils % (A) 1 %; HCT 23.7 % (34.0-46.0); HGB 7.3 gm/dL (11.4-16.0); Hypochromasia Marked; Lymphocytes # (A) 2.9 k/uL (1.0-4.8); Lymphocytes % (A) 22 %; MCH 24.8 pg (25.0-35.0); MCHC 30.8 g/dL (31.0-37.0); MCV 80.4 fL (80.0-100.0); Mean Platelet Volume 8.1; Monocytes # (A) 0.5 k/uL (0-1.0); Monocytes % (A) 3 %; Neutrophils # (A) 9.9 k/uL (1.3-7.7); Neutrophils % (A) 72 %; Platelet Count 272 k/uL (150-450); RBC 2.94 m/uL (3.80-5.40); RDW 16.6 % (11.5-15.5); WBC 13.6 k/uL (3.8-10.6)
[2017-05-20 05:05] LABS: Albumin 2.8 g/dL (3.5-5.0); Magnesium 1.9 mg/dL (1.6-2.3); Phosphorus 3.1 mg/dL (2.5-4.5); Potassium 4.4 mmol/L (3.5-5.1); Total Bilirubin 0.2 mg/dL (0.2-1.3); Total Protein 5.1 g/dL (6.3-8.2)
[2017-05-20 07:05] LABS: Glucose,Whole Blood 187 mg/dL (75-99)
--- NOTE | 2017-05-20 07:50 | P.PN ---
Subjective Progress Note Date: 05/20/17 Principal diagnosis: Acute upper GI bleed Status post EGD evaluation yesterday for acute upper GI bleed with findings of active bleeding prepyloric ulcer status post injection cautery. Presently resting comfortably. NG tube with minimal old blood output. Hemoglobin 7.3. Platelet 272. BUN 50. Creatinine 0.9. Objective - Vital Signs Vital signs: Vital Signs Temp 98.3 F 05/20/17 04:00 Pulse 65 05/20/17 07:00 Resp 17 05/20/17 07:00 BP 133/65 05/20/17 07:00 Pulse Ox 100 05/20/17 07:00 Intake & Output 05/19/17 05/20/17 05/20/17 18:59 06:59 18:59 Intake Total 650 1370 75 Output Total 2600 175 Balance 650 -1230 -100 Weight 126.5 kg Intake: IV 600 Intake, IV Titration 750 75 Amount Sodium Chloride 0.9% 1, 750 75 000 ml @ 75 mls/hr IV . [id number] [facility] Rx#:[id number] Blood Product 50 620 Rc As-1 Unit 0 310 [id number] Output: Urine 2600 175 Other: Voiding Method Bedside Commode Indwelling Catheter - Exam General appearance: The patient is alert, oriented, in no acute distress. HET: Head is normocephalic and atraumatic. Pupils are equal and reactive. Oropharynx is clear without lesions. NG tube with old dark blood tinged gastric fluid. Neck: Supple without lymphadenopathy. Trachea midline. Heart: S1 S2. Regular rate and rhythm. Lungs: No crackles or wheezes are heard. Abdomen: Soft, nontender, nondistended with bowel sounds. No peritoneal signs. No palpable organomegaly or masses. Extremities: Normal skin color and turgor. No cyanosis, rash, ulceration, clubbing, or edema. Radial and pedal pulses are 2/4 bilaterally. Neurological: No focal deficits. Strength and sensation are grossly intact. - Labs CBC & Chem 7: 05/20/17 04:35 05/20/17 04:35 Labs: Abnormal Lab Results - Last 24 Hours (Table) 05/19/17 05/19/17 05/19/17 Range/Units 03:35 07:22 07:28 WBC (3.8-10.6) k/uL RBC (3.80-5.40) m/uL Hgb (11.4-16.0) gm/dL Hct (34.0-46.0) % MCV (80.0-100.0) fL MCH (25.0-35.0) pg MCHC (31.0-37.0) g/dL RDW (11.5-15.5) % Neutrophils # (1.3-7.7) k/uL Potassium 5.8 H (3.5-5.1) mmol/L Chloride 108 H (98-107) mmol/L Carbon Dioxide 20 L (22-30) mmol/L BUN 61 H (7-17) mg/dL Glucose 358 H (74-99) mg/dL POC Glucose (mg/dL) (75-99) mg/dL Hemoglobin A1c 8.1 H (4.0-6.0) % AST (14-36) U/L Total Protein (6.3-8.2) g/dL Albumin (3.5-5.0) g/dL Crossmatch See Detail 05/19/17 05/19/17 05/19/17 Range/Units 07:28 11:37 14:36 WBC 13.8 H (3.8-10.6) k/uL RBC 3.18 L (3.80-5.40) m/uL Hgb 7.5 L D (11.4-16.0) gm/dL Hct 25.2 L (34.0-46.0) % MCV 79.2 L (80.0-100.0) fL MCH 23.7 L (25.0-35.0) pg MCHC 29.9 L (31.0-37.0) g/dL RDW 16.1 H (11.5-15.5) % Neutrophils # 11.9 H (1.3-7.7) k/uL Potassium (3.5-5.1) mmol/L Chloride (98-107) mmol/L Carbon Dioxide (22-30) mmol/L BUN (7-17) mg/dL Glucose (74-99) mg/dL POC Glucose (mg/dL) 300 H 312 H (75-99) mg/dL Hemoglobin A1c (4.0-6.0) % AST (14-36) U/L Total Protein (6.3-8.2) g/dL Albumin (3.5-5.0) g/dL Crossmatch 05/19/17 05/19/17 05/19/17 Range/Units 15:30 15:30 17:25 WBC 14.7 H (3.8-10.6) k/uL RBC 2.83 L (3.80-5.40) m/uL Hgb 6.8 L* (11.4-16.0) gm/dL Hct 22.6 L (34.0-46.0) % MCV (80.0-100.0) fL MCH 23.9 L (25.0-35.0) pg MCHC 29.9 L (31.0-37.0) g/dL RDW 16.2 H (11.5-15.5) % Neutrophils # 12.3 H (1.3-7.7) k/uL Potassium 5.4 H (3.5-5.1) mmol/L Chloride 109 H (98-107) mmol/L Carbon Dioxide 21 L (22-30) mmol/L BUN 65 H (7-17) mg/dL Glucose 287 H (74-99) mg/dL POC Glucose (mg/dL) 296 H (75-99) mg/dL Hemoglobin A1c (4.0-6.0) % AST (14-36) U/L Total Protein (6.3-8.2) g/dL Albumin (3.5-5.0) g/dL Crossmatch 05/19/17 05/19/17 05/19/17 Range/Units 18:29 20:43 21:48 WBC 14.3 H (3.8-10.6) k/uL RBC 3.21 L (3.80-5.40) m/uL Hgb 7.7 L (11.4-16.0) gm/dL Hct 25.7 L (34.0-46.0) % MCV 79.9 L (80.0-100.0) fL MCH 23.8 L (25.0-35.0) pg MCHC 29.8 L (31.0-37.0) g/dL RDW 17.1 H (11.5-15.5) % Neutrophils # 10.5 H (1.3-7.7) k/uL Potassium (3.5-5.1) mmol/L Chloride (98-107) mmol/L Carbon Dioxide (22-30) mmol/L BUN (7-17) mg/dL Glucose (74-99) mg/dL POC Glucose (mg/dL) 257 H 241 H (75-99) mg/dL Hemoglobin A1c (4.0-6.0) % AST (14-36) U/L Total Protein (6.3-8.2) g/dL Albumin (3.5-5.0) g/dL Crossmatch 05/20/17 05/20/17 05/20/17 Range/Units 04:35 04:35 07:03 WBC 13.6 H (3.8-10.6) k/uL RBC 2.94 L (3.80-5.40) m/uL Hgb 7.3 L (11.4-16.0) gm/dL Hct 23.7 L (34.0-46.0) % MCV (80.0-100.0) fL MCH 24.8 L (25.0-35.0) pg MCHC 30.8 L (31.0-37.0) g/dL RDW 16.6 H (11.5-15.5) % Neutrophils # 9.9 H (1.3-7.7) k/uL Potassium (3.5-5.1) mmol/L Chloride 113 H (98-107) mmol/L Carbon Dioxide 20 L (22-30) mmol/L BUN 50 H (7-17) mg/dL Glucose 162 H (74-99) mg/dL POC Glucose (mg/dL) 187 H (75-99) mg/dL Hemoglobin A1c (4.0-6.0) % AST 12 L (14-36) U/L Total Protein 5.1 L (6.3-8.2) g/dL Albumin 2.8 L (3.5-5.0) g/dL Crossmatch Assessment and Plan (1) Upper GI bleed Narrative/Plan: Secondary to actively bleeding prepyloric ulcer status post EGD therapeutic intervention Current Visit: Yes Status: Acute Code(s): K92.2 - GASTROINTESTINAL HEMORRHAGE, UNSPECIFIED SNOMED Code(s): 80902405 (2) Hematemesis Current Visit: Yes Status: Acute Code(s): K92.0 - HEMATEMESIS SNOMED Code( s): 2103470 (3) Melena Current Visit: Yes Status: Acute Code(s): K92.1 - MELENA SNOMED Code(s): 3202560 (4) Acute blood loss anemia Current Visit: Yes Status: Acute Code(s): D62 - ACUTE POSTHEMORRHAGIC ANEMIA SNOMED Code(s): 366634896 (5) Atrial fibrillation Current Visit: Yes Status: Chronic Code(s): I48.91 - UNSPECIFIED ATRIAL FIBRILLATION SNOMED Code(s): 66645170 (6) Morbid obesity with BMI of 40.0-44.9, adult Current Visit: Yes Status: Chronic Code(s): E66.01 - MORBID (SEVERE) OBESITY DUE TO EXCESS CALORIES; Z68.41 - BODY MASS INDEX (BMI) 40.0-44.9, ADULT SNOMED Code(s): 678162391 (7) Hyperkalemia Current Visit: Yes Status: Acute Code(s): E87.5 - HYPERKALEMIA SNOMED Code (s): 35620223 Plan: 1. Continue to hold anticoagulation. 2. Continue Protonix 40 mg IV twice daily. 3. CBC monitoring. 4. Remove NG tube. Start clear liquids. Assessment and plan a care discussed with Dr. Segura
[2017-05-20] MEDS: INSULIN DETEMIR 100 UNIT/ML 10 ML VIAL SQ SCH ×2 (08:37→20:54)
[2017-05-20] MEDS: INSULIN ASPART 100 UNIT/ML 1 ML 10 ML VIAL SQ SCH ×4 (08:37→20:54)
[2017-05-20] MEDS: SODIUM CHLORIDE 0.9% 1,000 ML IV SCH (08:49)
--- NOTE | 2017-05-20 09:04 | P.CNPUL ---
History of Present Illness Consult date: 05/20/17 Reason for consult: other Chief complaint: GI bleed History of present illness: Consult dated 05/20/2017 This is an 81-year-old female who apparently presented with coffee ground emesis in the emergency department. She was taken to the endoscopy Center where she was found have an actively bleeding prepyloric ulcer. It was injected with epinephrine and she had cold coagulation of the ulcer bed. She was transferred up to the ICU for closer monitoring. An NG tube is in place. The patient has received 1 unit of PRBCs. Currently she is receiving O2 2 L nasal cannula and she get a saline IV at 75 mL an hour. She was admitted on May 19. She apparently has a history of atrial fibrillation CVA diabetes hyperlipidemia hypertension osteoarthritis sleep apnea migraine cephalgia. She was on blood thinners in the form of Eliquis. Currently She Is Doing Relatively Well. She Seemed Relatively Stable. Hemodynamic and Respiratory Status Are Stable. Blood Pressures Good. Again She's Only Receive 1 Unit of PRBCs. Her Hemoglobin This Morning I Believe Was 7.3. Review of Systems A 12 point review of systems is positive for vomiting coffee ground emesis. The rest of review of systems is unremarkable. Currently she is stable. Not having any more nausea or vomiting. 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 History of Any Multi-Drug Resistant Organisms: MRSA Date of last positivie culture/infection: 12/2016 MDRO Source:: nasal Past Surgical History: Hysterectomy, Joint Replacement, Orthopedic Surgery Additional Past Surgical History / Comment(s): Colonoscopy 10 yrs ago, R/L knee replacement, L foot surgery for bunionectomy, hemorrhoidectomy, rt cataract. Past Anesthesia/Blood Transfusion Reactions: No Reported Reaction Additional Past Anesthesia/Blood Transfusion Reaction / Comment(s): no complications with prior blood transfusion Smoking Status: Never smoker - Past Family History Mother Family Medical History: CVA/TIA Additional Family Medical History / Comment(s): Mother of a CVA at the age of 77yrs. Father Family Medical History: Myocardial Infarction (AL) Additional Family Medical History / Comment(s): Father had his first AL at the age of 49yrs and at age 59 from a AL. Medications and Allergies Home Medications Medication Instructions Recorded Confirmed Type Cyanocobalamin (Vitamin B-12) 1,000 mcg PO DAILY 09/17/16 05/19/17 History [Vitamin B-12] Gabapentin [Neurontin] 300 mg PO BID 09/17/16 05/19/17 History Hydrochlorothiazide 25 mg PO QAM 09/17/16 05/19/17 History Insulin Glargine [Lantus] 40 unit SQ HS 09/17/16 05/19/17 History LORazepam [Ativan] 1 mg PO TID PRN 09/17/16 05/19/17 History Methocarbamol [Robaxin-750] 750 mg PO TID 09/17/16 05/19/17 History Sertraline HCl [Zoloft] 75 mg PO QAM 09/17/16 05/19/17 History amLODIPine BESYLATE [Norvasc] 10 mg PO QAM 09/17/16 05/19/17 History glipiZIDE [Glucotrol] 10 mg PO AC-BID 09/17/16 05/19/17 History Albuterol Sulfate [Proair Hfa] 2 puff INHALATION RT-Q4H PRN 01/13/17 05/19/17 History Apixaban [Eliquis] 5 mg PO BID 01/13/17 05/19/17 History Fluticasone Nasal [place] [Flonase 1 spr EA NOSTRIL DAILY PRN 01/13/17 05/19/17 History Nasal [place]] Furosemide [Lasix] 20 mg PO DAILY PRN 01/13/17 05/19/17 History Metoprolol Tartrate [Lopressor] 75 mg PO QAM 01/13/17 05/19/17 History Ramipril [Altace] 10 mg PO BID 01/13/17 05/19/17 History Amiodarone [Cordarone] 200 mg PO BID 05/19/17 05/19/17 History Cholecalciferol [Vitamin D3] 1,000 unit PO DAILY 05/19/17 05/19/17 History Metoprolol Tartrate [Lopressor] 50 mg PO HS 05/19/17 05/19/17 History oxyCODONE-APAP 5-325MG [Percocet 1 tab PO TID PRN 05/19/17 05/19/17 History 5-325 mg] Allergies Allergy/AdvReac Type Severity Reaction Status Date / Time atorvastatin Allergy Unknown Verified 05/19/17 07:43 pregabalin [From Lyrica] Allergy nystaigmus Verified 05/19/17 07:43 ibuprofen [From Motrin] AdvReac Abdominal Verified 05/19/17 07:43 Pain Physical Exam Osteopathic Statement: *. No significant issues noted on an osteopathic structural exam other than those noted in the History and Physical/Consult. Vitals: Vital Signs Temp Pulse Pulse Pulse Resp BP BP 05/20/17 08:14 05/20/17 08:00 98.5 F 76 23 131/53 05/20/17 07:00 65 17 133/65 05/20/17 06:00 66 31 H 149/48 05/20/17 05:00 66 30 H 137/49 05/20/17 04:00 98.3 F 60 81 14 117/43 05/20/17 03:00 76 23 158/63 05/20/17 02:00 58 L 12 126/41 05/20/17 01:00 62 17 100/43 05/20/17 00:29 05/20/17 00:00 70 81 29 H 156/78 05/19/17 23:03 70 14 111/40 05/19/17 23:00 98.7 F 69 19 111/40 05/19/17 22:30 66 16 129/38 05/19/17 22:00 68 15 118/53 05/19/17 21:30 67 16 134/58 05/19/17 21:00 64 22 133/45 05/19/17 20:30 98.6 F 67 26 H 148/63 05/19/17 20:00 99.1 F 72 23 154/58 05/19/17 19:30 64 31 H 131/41 05/19/17 19:00 99.2 F 67 20 125/44 03/22/18 18:31 74 21 05/19/17 18:20 99.4 F 65 20 145/67 05/19/17 17:50 98.3 F 77 14 112/71 05/19/17 17:45 20 113/48 05/19/17 17:40 97.9 F 75 05/19/17 16:59 81 24 132/60 05/19/17 16:00 76 16 130/60 05/19/17 15:45 82 16 138/63 05/19/17 15:30 82 16 135/63 05/19/17 15:15 94 16 142/63 05/19/17 15:00 91 16 139/65 05/19/17 14:45 92 16 145/63 05/19/17 14:30 91 16 143/65 05/19/17 14:15 96 16 137/63 05/19/17 14:00 97.6 F 96 16 157/67 05/19/17 13:45 92 16 132/59 05/19/17 13:33 97.5 F L 85 16 136/56 Pulse Ox 05/20/17 08:14 98 05/20/17 08:00 99 05/20/17 07:00 100 05/20/17 06:00 99 05/20/17 05:00 98 05/20/17 04:00 98 05/20/17 03:00 99 05/20/17 02:00 99 05/20/17 01:00 99 05/20/17 00:29 100 05/20/17 00:00 100 05/19/17 23:03 100 05/19/17 23:00 99 05/19/17 22:30 100 05/19/17 22:00 100 05/19/17 21:30 100 05/19/17 21:00 100 05/19/17 20:30 100 05/19/17 20:00 100 05/19/17 19:30 100 05/19/17 19:00 100 05/19/17 18:31 97 05/19/17 18:20 100 05/19/17 17:50 99 05/19/17 17:45 99 05/19/17 17:40 05/19/17 16:59 100 05/19/17 16:00 99 05/19/17 15:45 99 05/19/17 15:30 99 05/19/17 15:15 99 05/19/17 15:00 99 05/19/17 14:45 97 05/19/17 14:30 97 05/19/17 14:15 97 05/19/17 14:00 98 05/19/17 13:45 98 05/19/17 13:33 98 Intake and Output 05/19/17 05/20/17 05/20/17 22:59 06:59 14:59 Intake Total 820 600 150 Output Total 750 1850 465 Balance 70 -1250 -315 Intake: Intake, IV Titration 150 600 150 Amount Sodium Chloride 0.9% 1, 150 600 150 000 ml @ 75 mls/hr IV . [id number] [facility] Rx#:[id number] Blood Product 670 Rc As-1 Unit 310 [id number] Output: Urine 750 1850 465 Other: Voiding Method Indwelling Catheter Indwelling Catheter Weight 126.5 kg No acute distress, oriented 3. Nasal O2 and an NG tube in place. HEENT examination is grossly unremarkable. Mucous membranes are moist. No oral lesions. Neck supple. Full range of motion. No adenopathy thyromegaly or neck vein distention. Cardiovascular examination reveals regular rhythm rate. S1-S2 normal. No S3 or S4. No discernible murmur noted. Lungs reveal clear breath sounds. Her sounds are equal bilaterally. No adventitious lung sounds including wheezes rhonchi or crackles. Abdomen soft bowel sounds are heard. No masses or tenderness. Extremities are intact. No cyanosis clubbing or edema. Skin is without rash or lesion. Neurologic examination is brief but nonfocal. Results - Laboratory Findings CBC and BMP: 05/20/17 04:35 05/20/17 04:35 PT/INR, D-dimer PT 10.8 sec (9.0-12.0) 05/19/17 03:35 INR 1.1 (<1.2) 05/19/17 03:35 Abnormal lab findings: Abnormal Labs 05/19/17 05/19/17 05/19/17 03:35 03:35 03:35 WBC 15.3 H RBC 3.79 L Hgb 9.0 L D Hct 29.6 L MCV 78.3 L MCH 23.7 L MCHC 30.3 L RDW 16.7 H Neutrophils # 13.5 H Potassium 5.4 H Chloride Carbon Dioxide 21 L BUN 58 H Creatinine 1.10 H Glucose 380 H POC Glucose (mg/dL) Hemoglobin A1c Plasma Lactic Acid [place] 4.2 H* AST 13 L Total Protein 5.9 L Albumin Crossmatch 05/19/17 05/19/17 05/19/17 03:35 05:00 07:22 WBC RBC Hgb Hct MCV MCH MCHC RDW Neutrophils # Potassium 5.8 H Chloride 108 H Carbon Dioxide 20 L BUN 61 H Creatinine Glucose 358 H POC Glucose (mg/dL) Hemoglobin A1c Plasma Lactic Acid [place] 2.5 H* AST Total Protein Albumin Crossmatch See Detail 05/19/17 05/19/17 05/19/17 07:28 07:28 07:32 WBC 13.8 H RBC 3.18 L Hgb 7.5 L D Hct 25.2 L MCV 79.2 L MCH 23.7 L MCHC 29.9 L RDW 16.1 H Neutrophils # 11.9 H Potassium Chloride Carbon Dioxide BUN Creatinine Glucose POC Glucose (mg/dL) 369 H Hemoglobin A1c 8.1 H Plasma Lactic Acid [place] AST Total Protein Albumin Crossmatch 05/19/17 05/19/17 05/19/17 11:37 14:36 15:30 WBC 14.7 H RBC 2.83 L Hgb 6.8 L* Hct 22.6 L MCV MCH 23.9 L MCHC 29.9 L RDW 16.2 H Neutrophils # 12.3 H Potassium Chloride Carbon Dioxide BUN Creatinine Glucose POC Glucose (mg/dL) 300 H 312 H Hemoglobin A1c Plasma Lactic Acid [place] AST Total Protein Albumin Crossmatch 05/19/17 05/19/17 05/19/17 15:30 17:25 18:29 WBC RBC Hgb Hct MCV MCH MCHC RDW Neutrophils # Potassium 5.4 H Chloride 109 H Carbon Dioxide 21 L BUN 65 H Creatinine Glucose 287 H POC Glucose (mg/dL) 296 H 257 H Hemoglobin A1c Plasma Lactic Acid [place] AST Total Protein Albumin Crossmatch 05/19/17 05/19/17 05/20/17 20:43 21:48 04:35 WBC 14.3 H 13.6 H RBC 3.21 L 2.94 L Hgb 7.7 L 7.3 L Hct 25.7 L 23.7 L MCV 79.9 L MCH 23.8 L 24.8 L MCHC 29.8 L 30.8 L RDW 17.1 H 16.6 H Neutrophils # 10.5 H 9.9 H Potassium Chloride Carbon Dioxide BUN Creatinine Glucose POC Glucose (mg/dL) 241 H Hemoglobin A1c Plasma Lactic Acid [place] AST Total Protein Albumin Crossmatch 05/20/17 05/20/17 04:35 07:03 WBC RBC Hgb Hct MCV MCH MCHC RDW Neutrophils # Potassium Chloride 113 H Carbon Dioxide 20 L BUN 50 H Creatinine Glucose 162 H POC Glucose (mg/dL) 187 H Hemoglobin A1c Plasma Lactic Acid [place] AST 12 L Total Protein 5.1 L Albumin 2.8 L Crossmatch - Diagnostic Findings Chest x-ray: image reviewed (Labs x-rays a medications are all reviewed.) Assessment and Plan Assessment: Assessment Acute GI bleed secondary to a prepyloric ulcer, status post endoscopy with epinephrine injections and cold coagulation of the ulcer bed. The patient did receive 1 unit of PRBCs. History of atrial fibrillation, currently on Eliquis History of CVA Diabetes mellitus History of hyperlipidemia History of hypertension History of migraine cephalgia DJD Sleep apnea syndrome, currently on CPAP Plan: Plan dated 05/20/2017 The patient seemed be relatively stable. I've asked the nurses to recheck hemoglobin every 6 hours 3. We'll check again in 6 hours and 6 hours after that. She seemed relatively stable this time. We'll continue to watch her closely. Prognosis is guarded. NG tube in place. Eliquis has been discontinued. No aspirin or NSAIDs or any other antiplatelet drugs at this time. Prognosis is guarded. We'll continue to watch carefully. Time with Patient: Greater than 30
[2017-05-20] MEDS: PANTOPRAZOLE 40 MG/10 ML VIAL IVP SCH ×2 (09:58→20:32)
[2017-05-20] MEDS: SERTRALINE 50 MG TAB PO SCH (10:27)
[2017-05-20] MEDS: AMIODARONE 200 MG TAB PO SCH ×2 (10:27→20:32)
[2017-05-20 10:54] LABS: Anisocytosis Slight; Basophils # (A) 0.1 k/uL (0-0.2); Basophils % (A) 0 %; Eosinophils # (A) 0.1 k/uL (0-0.7); Eosinophils % (A) 1 %; HCT 23.3 % (34.0-46.0); HGB 7.1 gm/dL (11.4-16.0); Hypochromasia Marked; Lymphocytes # (A) 2.4 k/uL (1.0-4.8); Lymphocytes % (A) 16 %; MCH 24.6 pg (25.0-35.0); MCHC 30.6 g/dL (31.0-37.0); MCV 80.4 fL (80.0-100.0); Mean Platelet Volume 7.7; Monocytes # (A) 0.5 k/uL (0-1.0); Monocytes % (A) 3 %; Neutrophils # (A) 11.7 k/uL (1.3-7.7); Neutrophils % (A) 78 %; Platelet Count 267 k/uL (150-450); RDW 16.9 % (11.5-15.5)
--- NOTE | 2017-05-20 11:25 | P.PN ---
Subjective Progress Note Date: 05/20/17 Principal diagnosis: Acute GI bleed Patient doing well this morning. Hemoglobin trending down only slightly. This is likely dilutional. Nasogastric tube was removed. No bowel activity thus far. Hemoglobin is now 7.1. Denies pain. Objective - Vital Signs Vital signs: Vital Signs Temp 98.5 F 05/20/17 08:00 Pulse 75 05/20/17 11:00 Resp 20 05/20/17 11:00 BP 101/54 05/20/17 11:00 Pulse Ox 100 05/20/17 11:00 Intake & Output 05/19/17 05/20/17 05/20/17 18:59 06:59 18:59 Intake Total 650 1370 375 Output Total 2600 965 Balance 650 -1230 -590 Weight 126.5 kg Intake: IV 600 Intake, IV Titration 750 375 Amount Sodium Chloride 0.9% 1, 750 375 000 ml @ 75 mls/hr IV . [id number] [facility] Rx#:[id number] Blood Product 50 620 Rc As-1 Unit 0 310 [id number] Output: Urine 2600 965 Other: Voiding Method Bedside Commode Indwelling Catheter - Exam Abdomen: Soft, nontender, nondistended - Labs CBC & Chem 7: 05/20/17 10:16 05/20/17 04:35 Labs: Abnormal Lab Results - Last 24 Hours (Table) 05/19/17 05/19/17 05/19/17 Range/Units 03:35 07:28 11:37 WBC (3.8-10.6) k/uL RBC (3.80-5.40) m/uL Hgb (11.4-16.0) gm/dL Hct (34.0-46.0) % MCV (80.0-100.0) fL MCH (25.0-35.0) pg MCHC (31.0-37.0) g/dL RDW (11.5-15.5) % Neutrophils # (1.3-7.7) k/uL Potassium (3.5-5.1) mmol/L Chloride (98-107) mmol/L Carbon Dioxide (22-30) mmol/L BUN (7-17) mg/dL Glucose (74-99) mg/dL POC Glucose (mg/dL) 300 H (75-99) mg/dL Hemoglobin A1c 8.1 H (4.0-6.0) % AST (14-36) U/L Total Protein (6.3-8.2) g/dL Albumin (3.5-5.0) g/dL Crossmatch See Detail 05/19/17 05/19/17 05/19/17 Range/Units 14:36 15:30 15:30 WBC 14.7 H (3.8-10.6) k/uL RBC 2.83 L (3.80-5.40) m/uL Hgb 6.8 L* (11.4-16.0) gm/dL Hct 22.6 L (34.0-46.0) % MCV (80.0-100.0) fL MCH 23.9 L (25.0-35.0) pg MCHC 29.9 L (31.0-37.0) g/dL RDW 16.2 H (11.5-15.5) % Neutrophils # 12.3 H (1.3-7.7) k/uL Potassium 5.4 H (3.5-5.1) mmol/L Chloride 109 H (98-107) mmol/L Carbon Dioxide 21 L (22-30) mmol/L BUN 65 H (7-17) mg/dL Glucose 287 H (74-99) mg/dL POC Glucose (mg/dL) 312 H (75-99) mg/dL Hemoglobin A1c (4.0-6.0) % AST (14-36) U/L Total Protein (6.3-8.2) g/dL Albumin (3.5-5.0) g/dL Crossmatch 05/19/17 05/19/17 05/19/17 Range/Units 17:25 18:29 20:43 WBC (3.8-10.6) k/uL RBC (3.80-5.40) m/uL Hgb (11.4-16.0) gm/dL Hct (34.0-46.0) % MCV (80.0-100.0) fL MCH (25.0-35.0) pg MCHC (31.0-37.0) g/dL RDW (11.5-15.5) % Neutrophils # (1.3-7.7) k/uL Potassium (3.5-5.1) mmol/L Chloride (98-107) mmol/L Carbon Dioxide (22-30) mmol/L BUN (7-17) mg/dL Glucose (74-99) mg/dL POC Glucose (mg/dL) 296 H 257 H 241 H (75-99) mg/dL Hemoglobin A1c (4.0-6.0) % AST (14-36) U/L Total Protein (6.3-8.2) g/dL Albumin (3.5-5.0) g/dL Crossmatch 05/19/17 05/20/17 05/20/17 Range/Units 21:48 04:35 04:35 WBC 14.3 H 13.6 H (3.8-10.6) k/uL RBC 3.21 L 2.94 L (3.80-5.40) m/uL Hgb 7.7 L 7.3 L (11.4-16.0) gm/dL Hct 25.7 L 23.7 L (34.0-46.0) % MCV 79.9 L (80.0-100.0) fL MCH 23.8 L 24.8 L (25.0-35.0) pg MCHC 29.8 L 30.8 L (31.0-37.0) g/dL RDW 17.1 H 16.6 H (11.5-15.5) % Neutrophils # 10.5 H 9.9 H (1.3-7.7) k/uL Potassium (3.5-5.1) mmol/L Chloride 113 H (98-107) mmol/L Carbon Dioxide 20 L (22-30) mmol/L BUN 50 H (7-17) mg/dL Glucose 162 H (74-99) mg/dL POC Glucose (mg/dL) (75-99) mg/dL Hemoglobin A1c (4.0-6.0) % AST 12 L (14-36) U/L Total Protein 5.1 L (6.3-8.2) g/dL Albumin 2.8 L (3.5-5.0) g/dL Crossmatch 05/20/17 05/20/17 Range/Units 07:03 10:16 WBC 15.0 H (3.8-10.6) k/uL RBC 2.90 L (3.80-5.40) m/uL Hgb 7.1 L (11.4-16.0) gm/dL Hct 23.3 L (34.0-46.0) % MCV (80.0-100.0) fL MCH 24.6 L (25.0-35.0) pg MCHC 30.6 L (31.0-37.0) g/dL RDW 16.9 H (11.5-15.5) % Neutrophils # 11.7 H (1.3-7.7) k/uL Potassium (3.5-5.1) mmol/L Chloride (98-107) mmol/L Carbon Dioxide (22-30) mmol/L BUN (7-17) mg/dL Glucose (74-99) mg/dL POC Glucose (mg/dL) 187 H (75-99) mg/dL Hemoglobin A1c (4.0-6.0) % AST (14-36) U/L Total Protein (6.3-8.2) g/dL Albumin (3.5-5.0) g/dL Crossmatch Assessment and Plan (1) Upper GI bleed Narrative/Plan: Patient doing well. No evidence currently of active bleeding. Continue to hold anticoagulation. Continue antiacid therapy. Again clear liquids. Follow hemoglobin. Consider transfusion if hemoglobin drops below 7. Current Visit: Yes Status: Acute Code(s): K92.2 - GASTROINTESTINAL HEMORRHAGE, UNSPECIFIED SNOMED Code(s): 96774755
[2017-05-20 11:43] LABS: Glucose,Whole Blood 186 mg/dL (75-99)
[2017-05-20] MEDS: SUCRALFATE 1 GM TAB PO SCH ×3 (12:49→20:30)
--- NOTE | 2017-05-20 13:24 | P.PN ---
Subjective Progress Note Date: 05/20/17 Principal diagnosis: GI bleeding Patient has minimal NG tube output since yesterday. No black stools or blood in the bowel movement. No abdominal pain, no nausea or vomiting. No chest pain or shortness of breath. Objective - Vital Signs Vital signs: Vital Signs Temp 99.1 F 05/20/17 12:00 Pulse 62 05/20/17 12:00 Resp 27 H 05/20/17 12:00 BP 116/35 05/20/17 12:00 Pulse Ox 100 05/20/17 12:00 Intake & Output 05/19/17 05/20/17 05/20/17 18:59 06:59 18:59 Intake Total 650 1370 450 Output Total 2600 1105 Balance 650 -1230 -655 Weight 126.5 kg Intake: IV 600 Intake, IV Titration 750 450 Amount Sodium Chloride 0.9% 1, 750 450 000 ml @ 75 mls/hr IV . [id number] [facility] Rx#:[id number] Blood Product 50 620 Rc As-1 Unit 0 310 [id number] Output: Urine 2600 1105 Other: Voiding Method Bedside Commode Indwelling Catheter - Exam Constitutional: No acute distress, conversant, pleasant Eyes:Anicteric sclerae, moist conjunctiva, no lid-lag, PERRLA, ENMT: Oropharynx clear, no erythema, exudates Neck: Supple, FROM, no masses, or JVD, No carotid bruits, No thyromegaly Lungs: Clear to auscultation, Clear to percussion, Normal respiratory effort, no accessory muscle use Cardiovascular: Heart regular in rate and rhythm, No murmurs, gallops, or rubs, No peripheral edema Abdominal: Soft, Nontender, no guarding, rebound or rigidity, Normoactive bowel sounds, No hepatomegaly, No splenomegaly, No palpable mass Skin: Normal temperature, tone, texture, turgor, no induration, No subcutaneous nodules, No rash, lesions, No ulcers Extremities: No digital cyanosis, No clubbing, Pedal pulses intact and symmetrical, Radial pulses intact and symmetrical, No calf tenderness Psychiatric: Alert and oriented to person, place and time, appropriate affect, intact judgement Neuro: Muscles Strength 5/5 in all 4 extremities, Sensation to light touch grossly present throughout, Cranial nerves II-XII grossly intact, no focal sensory deficits - Labs CBC & Chem 7: 05/20/17 10:16 05/20/17 04:35 Labs: Abnormal Lab Results - Last 24 Hours (Table) 05/19/17 05/19/17 05/19/17 Range/Units 03:35 07:28 14:36 WBC (3.8-10.6) k/uL RBC (3.80-5.40) m/uL Hgb (11.4-16.0) gm/dL Hct (34.0-46.0) % MCV (80.0-100.0) fL MCH (25.0-35.0) pg MCHC (31.0-37.0) g/dL RDW (11.5-15.5) % Neutrophils # (1.3-7.7) k/uL Potassium (3.5-5.1) mmol/L Chloride (98-107) mmol/L Carbon Dioxide (22-30) mmol/L BUN (7-17) mg/dL Glucose (74-99) mg/dL POC Glucose (mg/dL) 312 H (75-99) mg/dL Hemoglobin A1c 8.1 H (4.0-6.0) % AST (14-36) U/L Total Protein (6.3-8.2) g/dL Albumin (3.5-5.0) g/dL Crossmatch See Detail 05/19/17 05/19/17 05/19/17 Range/Units 15:30 15:30 17:25 WBC 14.7 H (3.8-10.6) k/uL RBC 2.83 L (3.80-5.40) m/uL Hgb 6.8 L* (11.4-16.0) gm/dL Hct 22.6 L (34.0-46.0) % MCV (80.0-100.0) fL MCH 23.9 L (25.0-35.0) pg MCHC 29.9 L (31.0-37.0) g/dL RDW 16.2 H (11.5-15.5) % Neutrophils # 12.3 H (1.3-7.7) k/uL Potassium 5.4 H (3.5-5.1) mmol/L Chloride 109 H (98-107) mmol/L Carbon Dioxide 21 L (22-30) mmol/L BUN 65 H (7-17) mg/dL Glucose 287 H (74-99) mg/dL POC Glucose (mg/dL) 296 H (75-99) mg/dL Hemoglobin A1c (4.0-6.0) % AST (14-36) U/L Total Protein (6.3-8.2) g/dL Albumin (3.5-5.0) g/dL Crossmatch 05/19/17 05/19/17 05/19/17 Range/Units 18:29 20:43 21:48 WBC 14.3 H (3.8-10.6) k/uL RBC 3.21 L (3.80-5.40) m/uL Hgb 7.7 L (11.4-16.0) gm/dL Hct 25.7 L (34.0-46.0) % MCV 79.9 L (80.0-100.0) fL MCH 23.8 L (25.0-35.0) pg MCHC 29.8 L (31.0-37.0) g/dL RDW 17.1 H (11.5-15.5) % Neutrophils # 10.5 H (1.3-7.7) k/uL Potassium (3.5-5.1) mmol/L Chloride (98-107) mmol/L Carbon Dioxide (22-30) mmol/L BUN (7-17) mg/dL Glucose (74-99) mg/dL POC Glucose (mg/dL) 257 H 241 H (75-99) mg/dL Hemoglobin A1c (4.0-6.0) % AST (14-36) U/L Total Protein (6.3-8.2) g/dL Albumin (3.5-5.0) g/dL Crossmatch 05/20/17 05/20/17 05/20/17 Range/Units 04:35 04:35 07:03 WBC 13.6 H (3.8-10.6) k/uL RBC 2.94 L (3.80-5.40) m/uL Hgb 7.3 L (11.4-16.0) gm/dL Hct 23.7 L (34.0-46.0) % MCV (80.0-100.0) fL MCH 24.8 L (25.0-35.0) pg MCHC 30.8 L (31.0-37.0) g/dL RDW 16.6 H (11.5-15.5) % Neutrophils # 9.9 H (1.3-7.7) k/uL Potassium (3.5-5.1) mmol/L Chloride 113 H (98-107) mmol/L Carbon Dioxide 20 L (22-30) mmol/L BUN 50 H (7-17) mg/dL Glucose 162 H (74-99) mg/dL POC Glucose (mg/dL) 187 H (75-99) mg/dL Hemoglobin A1c (4.0-6.0) % AST 12 L (14-36) U/L Total Protein 5.1 L (6.3-8.2) g/dL Albumin 2.8 L (3.5-5.0) g/dL Crossmatch 05/20/17 05/20/17 Range/Units 10:16 11:40 WBC 15.0 H (3.8-10.6) k/uL RBC 2.90 L (3.80-5.40) m/uL Hgb 7.1 L (11.4-16.0) gm/dL Hct 23.3 L (34.0-46.0) % MCV (80.0-100.0) fL MCH 24.6 L (25.0-35.0) pg MCHC 30.6 L (31.0-37.0) g/dL RDW 16.9 H (11.5-15.5) % Neutrophils # 11.7 H (1.3-7.7) k/uL Potassium (3.5-5.1) mmol/L Chloride (98-107) mmol/L Carbon Dioxide (22-30) mmol/L BUN (7-17) mg/dL Glucose (74-99) mg/dL POC Glucose (mg/dL) 186 H (75-99) mg/dL Hemoglobin A1c (4.0-6.0) % AST (14-36) U/L Total Protein (6.3-8.2) g/dL Albumin (3.5-5.0) g/dL Crossmatch Assessment and Plan Plan: (1) Upper GI bleed sec to gastric ulcer Status post EGD on 05/19 Stabilized, continue to follow hemoglobin, next draw will be at 6 PM Continue Protonix 40 mg IV twice a day GI following (2) Acute blood loss anemia Serial hgbs S/P 1 unit of blood transfusion 05/19. (3) Atrial fibrillation/ Morbid obesity with BMI of 40.0-44.9, adult Stable Hold amiodarone secondary to GI bleeding (4) Essential hypertension: Hold BP meds secondary to GI bleeding (5) Diabetes type 2: Hold oral hypoglycemics and long-acting insulin Patient currently started on clears We'll just use sliding scale insulin for now DVT prophylaxis: SCDs Anticipated discharge within 2 days
[2017-05-20] MEDS: MORPHINE SULFATE/PF 10MG/10ML VL IVP PRN (14:28)
[2017-05-20 16:26] LABS: Anisocytosis Slight; Basophils # (A) 0.1 k/uL (0-0.2); Basophils % (A) 0 %; Eosinophils # (A) 0.2 k/uL (0-0.7); Eosinophils % (A) 1 %; HCT 24.4 % (34.0-46.0); HGB 7.2 gm/dL (11.4-16.0); Hypochromasia Moderate; Lymphocytes # (A) 2.9 k/uL (1.0-4.8); Lymphocytes % (A) 19 %; MCH 23.4 pg (25.0-35.0); MCHC 29.4 g/dL (31.0-37.0); MCV 79.7 fL (80.0-100.0); Mean Platelet Volume 8.7; Microcytosis Slight; Monocytes # (A) 0.5 k/uL (0-1.0); Monocytes % (A) 3 %; Neutrophils # (A) 11.9 k/uL (1.3-7.7); Neutrophils % (A) 76 %; Platelet Count 278 k/uL (150-450); RBC 3.06 m/uL (3.80-5.40); RDW 17.8 % (11.5-15.5); WBC 15.6 k/uL (3.8-10.6)
[2017-05-20 17:49] LABS: Glucose,Whole Blood 156 mg/dL (75-99)
[2017-05-20 20:44] LABS: Glucose,Whole Blood 183 mg/dL (75-99)
[2017-05-21 00:37] LABS: Anisocytosis Slight; Basophils # (A) 0.1 k/uL (0-0.2); Basophils % (A) 0 %; Eosinophils # (A) 0.2 k/uL (0-0.7); Eosinophils % (A) 2 %; HCT 21.9 % (34.0-46.0); Hypochromasia Marked; Lymphocytes # (A) 2.6 k/uL (1.0-4.8); Lymphocytes % (A) 20 %; MCH 23.6 pg (25.0-35.0); MCHC 29.5 g/dL (31.0-37.0); MCV 80.2 fL (80.0-100.0); Mean Platelet Volume 7.9; Microcytosis Slight; Monocytes # (A) 0.4 k/uL (0-1.0); Monocytes % (A) 3 %; Neutrophils # (A) 9.6 k/uL (1.3-7.7); Neutrophils % (A) 74 %; Platelet Count 269 k/uL (150-450); RBC 2.73 m/uL (3.80-5.40); RDW 17.9 % (11.5-15.5)
[2017-05-21 00:38] LABS: HGB 6.5 gm/dL (11.4-16.0)
[2017-05-21 06:09] LABS: Anisocytosis Slight; Basophils # (A) 0.1 k/uL (0-0.2); Basophils % (A) 0 %; Eosinophils # (A) 0.3 k/uL (0-0.7); Eosinophils % (A) 2 %; HGB 7.6 gm/dL (11.4-16.0); Hypochromasia Marked; Lymphocytes # (A) 2.7 k/uL (1.0-4.8); Lymphocytes % (A) 24 %; MCH 24.9 pg (25.0-35.0); MCHC 30.5 g/dL (31.0-37.0); MCV 81.6 fL (80.0-100.0); Mean Platelet Volume 7.9; Monocytes # (A) 0.5 k/uL (0-1.0); Monocytes % (A) 4 %; Neutrophils # (A) 7.7 k/uL (1.3-7.7); Neutrophils % (A) 68 %; Platelet Count 243 k/uL (150-450); RBC 3.07 m/uL (3.80-5.40); RDW 17.5 % (11.5-15.5); WBC 11.3 k/uL (3.8-10.6)
[2017-05-21 06:27] LABS: Albumin 2.9 g/dL (3.5-5.0); Calcium 9.1 mg/dL (8.4-10.2); Magnesium 1.8 mg/dL (1.6-2.3); Phosphorus 3.7 mg/dL (2.5-4.5); Potassium 4.3 mmol/L (3.5-5.1); Total Bilirubin 0.5 mg/dL (0.2-1.3); Total Protein 5.1 g/dL (6.3-8.2)
[2017-05-21 07:19] LABS: Glucose,Whole Blood 175 mg/dL (75-99)
[2017-05-21] MEDS: AMIODARONE 200 MG TAB PO SCH ×2 (09:04→20:59)
[2017-05-21] MEDS: SUCRALFATE 1 GM TAB PO SCH ×3 (09:04→17:49)
[2017-05-21] MEDS: SODIUM CHLORIDE 0.9% 1,000 ML IV SCH ×2 (09:04→09:11)
[2017-05-21] MEDS: INSULIN ASPART 100 UNIT/ML 1 ML 10 ML VIAL SQ SCH ×4 (09:05→21:00)
[2017-05-21] MEDS: SERTRALINE 50 MG TAB PO SCH (09:10)
[2017-05-21] MEDS: PANTOPRAZOLE 40 MG/10 ML VIAL IVP SCH ×2 (09:10→20:59)
--- NOTE | 2017-05-21 09:29 | P.PN ---
Subjective Progress Note Date: 05/21/17 Principal diagnosis: gi bleed 81 y/o female that was admitted with gi bleed. Egd showed bleed ulcer which was cauterized by Dr Rodriguez. Patient denies any bowel movements since tuesday. She is passing flatus. Tolerating liquid diet. Objective - Vital Signs Vital signs: Vital Signs Temp 98.5 F 05/21/17 02:07 Pulse 100 05/21/17 07:00 Resp 15 05/21/17 07:00 BP 150/61 05/21/17 07:00 Pulse Ox 99 05/21/17 07:00 Intake & Output 05/20/17 05/21/17 05/21/17 18:59 06:59 18:59 Intake Total 1775 975 75 Output Total 1595 1700 125 Balance 180 -725 -50 Weight 129 kg Intake: Intake, IV Titration 975 675 75 Amount Sodium Chloride 0.9% 1, 975 675 75 000 ml @ 75 mls/hr IV . [id number] [facility] Rx#:[id number] Oral 800 Blood Product 300 Rc As-1 Unit 0 [id number] Output: Urine 1595 1700 125 Other: Voiding Method Indwelling Catheter Indwelling Catheter - Exam gen:alert and oriented lungs:clear to auscultation heart:s1s2 abdomen:soft and depressible,non tender ext:no edema - Labs CBC & Chem 7: 05/21/17 05:51 05/21/17 05:51 Labs: Abnormal Lab Results - Last 24 Hours (Table) 05/19/17 05/20/17 05/20/17 Range/Units 03:35 10:16 11:40 WBC 15.0 H (3.8-10.6) k/uL RBC 2.90 L (3.80-5.40) m/uL Hgb 7.1 L (11.4-16.0) gm/dL Hct 23.3 L (34.0-46.0) % MCV (80.0-100.0) fL MCH 24.6 L (25.0-35.0) pg MCHC 30.6 L (31.0-37.0) g/dL RDW 16.9 H (11.5-15.5) % Neutrophils # 11.7 H (1.3-7.7) k/uL Chloride (98-107) mmol/L BUN (7-17) mg/dL Glucose (74-99) mg/dL POC Glucose (mg/dL) 186 H (75-99) mg/dL Total Protein (6.3-8.2) g/dL Albumin (3.5-5.0) g/dL Crossmatch See Detail 05/20/17 05/20/17 05/20/17 Range/Units 16:04 17:47 20:42 WBC 15.6 H (3.8-10.6) k/uL RBC 3.06 L (3.80-5.40) m/uL Hgb 7.2 L (11.4-16.0) gm/dL Hct 24.4 L (34.0-46.0) % MCV 79.7 L (80.0-100.0) fL MCH 23.4 L (25.0-35.0) pg MCHC 29.4 L (31.0-37.0) g/dL RDW 17.8 H (11.5-15.5) % Neutrophils # 11.9 H (1.3-7.7) k/uL Chloride (98-107) mmol/L BUN (7-17) mg/dL Glucose (74-99) mg/dL POC Glucose (mg/dL) 156 H 183 H (75-99) mg/dL Total Protein (6.3-8.2) g/dL Albumin (3.5-5.0) g/dL Crossmatch 05/21/17 05/21/17 05/21/17 Range/Units 00:18 05:51 05:51 WBC 13.0 H 11.3 H (3.8-10.6) k/uL RBC 2.73 L 3.07 L (3.80-5.40) m/uL Hgb 6.5 L* 7.6 L (11.4-16.0) gm/dL Hct 21.9 L 25.0 L (34.0-46.0) % MCV (80.0-100.0) fL MCH 23.6 L 24.9 L (25.0-35.0) pg MCHC 29.5 L 30.5 L (31.0-37.0) g/dL RDW 17.9 H 17.5 H (11.5-15.5) % Neutrophils # 9.6 H (1.3-7.7) k/uL Chloride 110 H (98-107) mmol/L BUN 27 H (7-17) mg/dL Glucose 149 H (74-99) mg/dL POC Glucose (mg/dL) (75-99) mg/dL Total Protein 5.1 L (6.3-8.2) g/dL Albumin 2.9 L (3.5-5.0) g/dL Crossmatch 05/21/17 Range/Units 07:17 WBC (3.8-10.6) k/uL RBC (3.80-5.40) m/uL Hgb (11.4-16.0) gm/dL Hct (34.0-46.0) % MCV (80.0-100.0) fL MCH (25.0-35.0) pg MCHC (31.0-37.0) g/dL RDW (11.5-15.5) % Neutrophils # (1.3-7.7) k/uL Chloride (98-107) mmol/L BUN (7-17) mg/dL Glucose (74-99) mg/dL POC Glucose (mg/dL) 175 H (75-99) mg/dL Total Protein (6.3-8.2) g/dL Albumin (3.5-5.0) g/dL Crossmatch Assessment and Plan (1) Upper GI bleed Narrative/Plan: s/p egd and cold coagulation no further bowel movements will monitor trend concerned with need for transfusion last night if drops again might need endoscopy Current Visit: Yes Status: Acute Code(s): K92.2 - GASTROINTESTINAL HEMORRHAGE, UNSPECIFIED SNOMED Code(s): 10263141 (2) Acute blood loss anemia Narrative/Plan: transfused last night for hgb<7. no stools since tuesday continue to closely monitor Current Visit: Yes Status: Acute Code(s): D62 - ACUTE POSTHEMORRHAGIC ANEMIA SNOMED Code(s): 317653308 (3) Atrial fibrillation Narrative/Plan: rate controlled on amiodarone at home will restart Current Visit: Yes Status: Chronic Code(s): I48.91 - UNSPECIFIED ATRIAL FIBRILLATION SNOMED Code(s): 09338404 (4) Essential hypertension Narrative/Plan: stable Current Visit: No Status: Acute Code(s): I10 - ESSENTIAL (PRIMARY) HYPERTENSION SNOMED Code(s): 27581555 (5) Type 2 diabetes mellitus with peripheral neuropathy Narrative/Plan: on 15 units of levemir while on clears controlled normally on 40u at home Current Visit: No Status: Acute Code(s): E11.42 - TYPE 2 DIABETES MELLITUS WITH DIABETIC POLYNEUROPATHY SNOMED Code(s): 7846798194452 (6) Morbid obesity with BMI of 40.0-44.9, adult Current Visit: Yes Status: Chronic Code(s): E66.01 - MORBID (SEVERE) OBESITY DUE TO EXCESS CALORIES; Z68.41 - BODY MASS INDEX (BMI) 40.0-44.9, ADULT SNOMED Code(s): 914712016 (7) Obstructive sleep apnea Current Visit: No Status: Acute Code(s): G47.33 - OBSTRUCTIVE SLEEP APNEA ( ADULT) (PEDIATRIC) SNOMED Code(s): 22692193
--- NOTE | 2017-05-21 10:13 | P.PN ---
Subjective Progress Note Date: 05/21/17 Principal diagnosis: Gastrointestinal bleeding. This is an 81-year-old female who apparently presented with coffee ground emesis in the emergency department. She was taken to the endoscopy Center where she was found have an actively bleeding prepyloric ulcer. It was injected with epinephrine and she had cold coagulation of the ulcer bed. She was transferred up to the ICU for closer monitoring. An NG tube is in place. The patient has received 1 unit of PRBCs. Currently she is receiving O2 2 L nasal cannula and she get a saline IV at 75 mL an hour. She was admitted on May 19. She apparently has a history of atrial fibrillation CVA diabetes hyperlipidemia hypertension osteoarthritis sleep apnea migraine cephalgia. She was on blood thinners in the form of Eliquis. Currently She Is Doing Relatively Well. She Seemed Relatively Stable. Hemodynamic and Respiratory Status Are Stable. Blood Pressures Good. Again She's Only Receive 1 Unit of PRBCs. Her Hemoglobin This Morning I Believe Was 7.3. The patient is seen again today 05/21/2017 in follow-up in the intensive care unit. She is currently awake and alert in no acute distress. She's had no further bleeding noted. No bowel movement yet today. She has been hemodynamically stable. Not requiring any pressors. Current hemoglobin 7.6. She is status post 2 units of packed red blood cells. 0.9 normal saline at 20 mls per hour. She is maintaining good O2 saturations in the 90s on 2 L/m per nasal cannula. She is tolerating a clear liquid diet. She remains on Protonix 40 mg IV push twice a day. She is status post EGD for acute upper GI bleeding with findings of active bleeding prepyloric ulcer status post injection cautery. Objective - Vital Signs Vital signs: Vital Signs Temp 98.5 F 05/21/17 02:07 Pulse 100 05/21/17 07:00 Resp 15 05/21/17 07:00 BP 150/61 05/21/17 07:00 Pulse Ox 99 05/21/17 07:00 Intake & Output 05/20/17 05/21/17 05/21/17 18:59 06:59 18:59 Intake Total 1775 975 75 Output Total 1595 1700 125 Balance 180 -725 -50 Weight 129 kg Intake: Intake, IV Titration 975 675 75 Amount Sodium Chloride 0.9% 1, 975 675 75 000 ml @ 75 mls/hr IV . [id number] [facility] Rx#:[id number] Oral 800 Blood Product 300 Rc As-1 Unit 0 [id number] Output: Urine 1595 1700 125 Other: Voiding Method Indwelling Catheter Indwelling Catheter - Exam GENERAL EXAM: Alert, comfortable in no apparent distress. HEAD: Normocephalic. EYES: Normal reaction of pupils, equal size. NOSE: Clear with pink turbinates. THROAT: No erythema or exudates. NECK: No masses, no JVD. CHEST: No chest wall deformity. LUNGS: Equal air entry with no crackles, wheeze, rhonchi or dullness. CVS: S1 and S2 normal with no audible murmur, regular rhythm. ABDOMEN: No hepatosplenomegaly, normal bowel sounds, no guarding or rigidity. SPINE: No scoliosis or deformity SKIN: No rashes CENTRAL NERVOUS SYSTEM: No focal deficits, tone is normal in all 4 extremities. EXTREMITIES: There is no peripheral edema. No clubbing, no cyanosis. Peripheral pulses are intact. - Labs CBC & Chem 7: 05/21/17 05:51 05/21/17 05:51 Labs: Abnormal Lab Results - Last 24 Hours (Table) 05/19/17 05/20/17 05/20/17 Range/Units 03:35 10:16 11:40 WBC 15.0 H (3.8-10.6) k/uL RBC 2.90 L (3.80-5.40) m/uL Hgb 7.1 L (11.4-16.0) gm/dL Hct 23.3 L (34.0-46.0) % MCV (80.0-100.0) fL MCH 24.6 L (25.0-35.0) pg MCHC 30.6 L (31.0-37.0) g/dL RDW 16.9 H (11.5-15.5) % Neutrophils # 11.7 H (1.3-7.7) k/uL Chloride (98-107) mmol/L BUN (7-17) mg/dL Glucose (74-99) mg/dL POC Glucose (mg/dL) 186 H (75-99) mg/dL Total Protein (6.3-8.2) g/dL Albumin (3.5-5.0) g/dL Crossmatch See Detail 05/20/17 05/20/17 05/20/17 Range/Units 16:04 17:47 20:42 WBC 15.6 H (3.8-10.6) k/uL RBC 3.06 L (3.80-5.40) m/uL Hgb 7.2 L (11.4-16.0) gm/dL Hct 24.4 L (34.0-46.0) % MCV 79.7 L (80.0-100.0) fL MCH 23.4 L (25.0-35.0) pg MCHC 29.4 L (31.0-37.0) g/dL RDW 17.8 H (11.5-15.5) % Neutrophils # 11.9 H (1.3-7.7) k/uL Chloride (98-107) mmol/L BUN (7-17) mg/dL Glucose (74-99) mg/dL POC Glucose (mg/dL) 156 H 183 H (75-99) mg/dL Total Protein (6.3-8.2) g/dL Albumin (3.5-5.0) g/dL Crossmatch 05/21/17 05/21/17 05/21/17 Range/Units 00:18 05:51 05:51 WBC 13.0 H 11.3 H (3.8-10.6) k/uL RBC 2.73 L 3.07 L (3.80-5.40) m/uL Hgb 6.5 L* 7.6 L (11.4-16.0) gm/dL Hct 21.9 L 25.0 L (34.0-46.0) % MCV (80.0-100.0) fL MCH 23.6 L 24.9 L (25.0-35.0) pg MCHC 29.5 L 30.5 L (31.0-37.0) g/dL RDW 17.9 H 17.5 H (11.5-15.5) % Neutrophils # 9.6 H (1.3-7.7) k/uL Chloride 110 H (98-107) mmol/L BUN 27 H (7-17) mg/dL Glucose 149 H (74-99) mg/dL POC Glucose (mg/dL) (75-99) mg/dL Total Protein 5.1 L (6.3-8.2) g/dL Albumin 2.9 L (3.5-5.0) g/dL Crossmatch 05/21/17 Range/Units 07:17 WBC (3.8-10.6) k/uL RBC (3.80-5.40) m/uL Hgb (11.4-16.0) gm/dL Hct (34.0-46.0) % MCV (80.0-100.0) fL MCH (25.0-35.0) pg MCHC (31.0-37.0) g/dL RDW (11.5-15.5) % Neutrophils # (1.3-7.7) k/uL Chloride (98-107) mmol/L BUN (7-17) mg/dL Glucose (74-99) mg/dL POC Glucose (mg/dL) 175 H (75-99) mg/dL Total Protein (6.3-8.2) g/dL Albumin (3.5-5.0) g/dL Crossmatch Assessment and Plan Assessment: Assessment Acute GI bleed secondary to a prepyloric ulcer, status post endoscopy with epinephrine injections and cold coagulation of the ulcer bed. The patient did receive 2 unit of PRBCs. History of atrial fibrillation, currently on Eliquis History of CVA Diabetes mellitus History of hyperlipidemia History of hypertension History of migraine cephalgia DJD Sleep apnea syndrome, currently on CPAP Plan: The patient was seen and evaluated by Dr. Olvera. She is currently stable from the pulmonary and critical care standpoint. We will continue to monitor hemoglobin closely. Continue to monitor for signs of bleeding. Continue Protonix and Carafate. She may be able be transferred out of the intensive care unit later today. We'll continue to follow and make further recommendations based on her clinical status. I, the cosigning physician, performed a history & physical examination of the patient. Lungs sounds are clear. Maintaining good O2 saturations in the 90s on 2 L/m per nasal cannula. I discussed the assessment and plan of care with my nurse practitioner, Marilou Araujo. I attest to the above note as dictated by her.
--- NOTE | 2017-05-21 10:45 | PN ---
PROGRESS NOTE DATE OF SERVICE: 05/21/2013 Patient is an 81-year-old pleasant white female admitted to hospital with acute upper GI bleed. She had an upper endoscopy done by Dr. Mathias 2 days ago and showed a large antral ulcer with active bleeding, which was injected and cauterized. Patient remains in the ICU, stable. She did drop her hemoglobin to 6.4 g/dL last night and received her second unit of blood transfusion. This morning hemoglobin is 7.5. She denies any abdominal pain. No nausea, vomiting. She did not have any bowel movements for 3 days. PHYSICAL EXAMINATION: She appears comfortable, in no apparent distress. Vital signs are stable. Blood pressure is 131/71, pulse 81, temperature 98.4. HEENT EXAMINATION: Unremarkable. Conjunctivae are pink. Sclerae nonicteric. Oral cavity no lesions. NECK: No JVD or lymph node enlargement. Chest was clear to auscultation. HEART: Regular rate and rhythm. ABDOMEN: Soft. Bowel sounds are positive. No organomegaly. EXTREMITIES: No pedal edema. SKIN: No rashes. NEURO: She is alert and oriented x3. No focal deficits. LABS: WBC 11.3, hemoglobin 7.6, platelets 243. BUN 27, creatinine 0.8. IMPRESSION: Acute upper gastrointestinal bleed, status post EGD [address] Mathias and was noted to have a large pre-pyloric ulcer, status post injection epinephrine and cautery with good hemostasis. She dropped her hemoglobin to 6.4 last night and received a unit of blood and so far total she received 2 units of blood transfusion, last hemoglobin 7.5. Clinically, no evidence of active bleeding. RECOMMENDATIONS: 1. Continue with IV Protonix 40 mg q.12 hours. 2. Continue with a clear liquid diet. 3. Will monitor her in ICU today. Will follow her closely. MMODL / IJN: [id number] /
--- NOTE | 2017-05-21 10:56 | P.PN ---
Subjective Progress Note Date: 05/21/17 Principal diagnosis: Acute GI bleed Patient feels well today. She had mild tachycardia earlier this morning. His may be related to the recent transfusion. Hemoglobin today 7.6. Denies abdominal pain. No bowel function last 24-48 hours. No nausea or vomiting. Tolerating clear liquids. Objective - Vital Signs Vital signs: Vital Signs Temp 98.5 F 05/21/17 02:07 Pulse 100 05/21/17 07:00 Resp 15 05/21/17 07:00 BP 150/61 05/21/17 07:00 Pulse Ox 99 05/21/17 07:00 Intake & Output 05/20/17 05/21/17 05/21/17 18:59 06:59 18:59 Intake Total 1775 975 75 Output Total 1595 1700 125 Balance 180 -725 -50 Weight 129 kg Intake: Intake, IV Titration 975 675 75 Amount Sodium Chloride 0.9% 1, 975 675 75 000 ml @ 75 mls/hr IV . [id number] [facility] Rx#:[id number] Oral 800 Blood Product 300 Rc As-1 Unit 0 [id number] Output: Urine 1595 1700 125 Other: Voiding Method Indwelling Catheter Indwelling Catheter - Exam Abdomen: Soft, nontender, nondistended - Labs CBC & Chem 7: 05/21/17 05:51 05/21/17 05:51 Labs: Abnormal Lab Results - Last 24 Hours (Table) 05/19/17 05/20/17 05/20/17 Range/Units 03:35 10:16 11:40 WBC 15.0 H (3.8-10.6) k/uL RBC 2.90 L (3.80-5.40) m/uL Hgb 7.1 L (11.4-16.0) gm/dL Hct 23.3 L (34.0-46.0) % MCV (80.0-100.0) fL MCH 24.6 L (25.0-35.0) pg MCHC 30.6 L (31.0-37.0) g/dL RDW 16.9 H (11.5-15.5) % Neutrophils # 11.7 H (1.3-7.7) k/uL Chloride (98-107) mmol/L BUN (7-17) mg/dL Glucose (74-99) mg/dL POC Glucose (mg/dL) 186 H (75-99) mg/dL Total Protein (6.3-8.2) g/dL Albumin (3.5-5.0) g/dL Crossmatch See Detail 05/20/17 05/20/17 05/20/17 Range/Units 16:04 17:47 20:42 WBC 15.6 H (3.8-10.6) k/uL RBC 3.06 L (3.80-5.40) m/uL Hgb 7.2 L (11.4-16.0) gm/dL Hct 24.4 L (34.0-46.0) % MCV 79.7 L (80.0-100.0) fL MCH 23.4 L (25.0-35.0) pg MCHC 29.4 L (31.0-37.0) g/dL RDW 17.8 H (11.5-15.5) % Neutrophils # 11.9 H (1.3-7.7) k/uL Chloride (98-107) mmol/L BUN (7-17) mg/dL Glucose (74-99) mg/dL POC Glucose (mg/dL) 156 H 183 H (75-99) mg/dL Total Protein (6.3-8.2) g/dL Albumin (3.5-5.0) g/dL Crossmatch 05/21/17 05/21/17 05/21/17 Range/Units 00:18 05:51 05:51 WBC 13.0 H 11.3 H (3.8-10.6) k/uL RBC 2.73 L 3.07 L (3.80-5.40) m/uL Hgb 6.5 L* 7.6 L (11.4-16.0) gm/dL Hct 21.9 L 25.0 L (34.0-46.0) % MCV (80.0-100.0) fL MCH 23.6 L 24.9 L (25.0-35.0) pg MCHC 29.5 L 30.5 L (31.0-37.0) g/dL RDW 17.9 H 17.5 H (11.5-15.5) % Neutrophils # 9.6 H (1.3-7.7) k/uL Chloride 110 H (98-107) mmol/L BUN 27 H (7-17) mg/dL Glucose 149 H (74-99) mg/dL POC Glucose (mg/dL) (75-99) mg/dL Total Protein 5.1 L (6.3-8.2) g/dL Albumin 2.9 L (3.5-5.0) g/dL Crossmatch 05/21/17 Range/Units 07:17 WBC (3.8-10.6) k/uL RBC (3.80-5.40) m/uL Hgb (11.4-16.0) gm/dL Hct (34.0-46.0) % MCV (80.0-100.0) fL MCH (25.0-35.0) pg MCHC (31.0-37.0) g/dL RDW (11.5-15.5) % Neutrophils # (1.3-7.7) k/uL Chloride (98-107) mmol/L BUN (7-17) mg/dL Glucose (74-99) mg/dL POC Glucose (mg/dL) 175 H (75-99) mg/dL Total Protein (6.3-8.2) g/dL Albumin (3.5-5.0) g/dL Crossmatch Assessment and Plan (1) Upper GI bleed Narrative/Plan: Agree with advancing diet to full liquids. Continue to follow hemoglobin although I doubt active bleeding currently. Continue antiacid therapy. Continue to hold anticoagulation. Current Visit: Yes Status: Acute Code(s): K92.2 - GASTROINTESTINAL HEMORRHAGE, UNSPECIFIED SNOMED Code(s): 38806310
[2017-05-21 12:28] LABS: Glucose,Whole Blood 201 mg/dL (75-99)
[2017-05-21 17:54] LABS: Glucose,Whole Blood 192 mg/dL (75-99)
[2017-05-21 18:40] LABS: Anisocytosis Slight; Basophils % (A) 0 %; Eosinophils # (A) 0.3 k/uL (0-0.7); Eosinophils % (A) 2 %; HCT 25.4 % (34.0-46.0); HGB 7.6 gm/dL (11.4-16.0); Hypochromasia Moderate; Lymphocytes # (A) 2.4 k/uL (1.0-4.8); Lymphocytes % (A) 19 %; MCH 24.1 pg (25.0-35.0); MCHC 29.8 g/dL (31.0-37.0); MCV 80.9 fL (80.0-100.0); Mean Platelet Volume 8.1; Microcytosis Slight; Monocytes # (A) 0.4 k/uL (0-1.0); Monocytes % (A) 4 %; Neutrophils # (A) 9.2 k/uL (1.3-7.7); Neutrophils % (A) 74 %; Platelet Count 250 k/uL (150-450); Poikilocytosis Slight; RBC 3.14 m/uL (3.80-5.40); RDW 18.2 % (11.5-15.5); WBC 12.5 k/uL (3.8-10.6)
[2017-05-21 20:28] LABS: Glucose,Whole Blood 211 mg/dL (75-99)
[2017-05-21] MEDS: INSULIN DETEMIR 100 UNIT/ML 10 ML VIAL SQ SCH (21:03)
[2017-05-22] MEDS: SODIUM CHLORIDE 0.9% 1,000 ML IV SCH ×2 (04:08→12:47)
[2017-05-22 06:15] LABS: Glucose,Whole Blood 192 mg/dL (75-99)
[2017-05-22] MEDS: INSULIN ASPART 100 UNIT/ML 1 ML 10 ML VIAL SQ SCH ×4 (06:34→21:25)
[2017-05-22] MEDS: SUCRALFATE 1 GM TAB PO SCH ×3 (06:35→17:50)
[2017-05-22 06:59] LABS: Anisocytosis Slight; Basophils % (A) 0 %; Eosinophils # (A) 0.2 k/uL (0-0.7); Eosinophils % (A) 2 %; HCT 24.5 % (34.0-46.0); HGB 7.3 gm/dL (11.4-16.0); Hypochromasia Marked; Lymphocytes # (A) 2.3 k/uL (1.0-4.8); Lymphocytes % (A) 24 %; MCH 24.4 pg (25.0-35.0); MCHC 29.7 g/dL (31.0-37.0); MCV 82.2 fL (80.0-100.0); Mean Platelet Volume 8.3; Monocytes # (A) 0.4 k/uL (0-1.0); Monocytes % (A) 4 %; Neutrophils # (A) 6.6 k/uL (1.3-7.7); Neutrophils % (A) 68 %; Platelet Count 240 k/uL (150-450); RBC 2.99 m/uL (3.80-5.40); RDW 18.1 % (11.5-15.5); WBC 9.7 k/uL (3.8-10.6)
[2017-05-22 07:18] LABS: Albumin 2.7 g/dL (3.5-5.0); Calcium 9.1 mg/dL (8.4-10.2); Magnesium 1.6 mg/dL (1.6-2.3); Phosphorus 3.4 mg/dL (2.5-4.5); Potassium 4.1 mmol/L (3.5-5.1); Total Bilirubin 0.3 mg/dL (0.2-1.3)
[2017-05-22] MEDS: AMIODARONE 200 MG TAB PO SCH ×2 (08:19→20:39)
[2017-05-22] MEDS: PANTOPRAZOLE 40 MG/10 ML VIAL IVP SCH ×2 (08:20→20:39)
[2017-05-22] MEDS: SERTRALINE 50 MG TAB PO SCH (08:20)
--- NOTE | 2017-05-22 09:38 | P.PN ---
Subjective Progress Note Date: 05/22/17 Principal diagnosis: gi bleed 81 y/o female that was admitted with gi bleed. Egd showed bleed ulcer which was cauterized by Dr Rodriguez. She did have bowel movment yesterday. Tolerating liquid diet. No abdominal pain or nausea. Objective - Vital Signs Vital signs: Vital Signs Temp 99.3 F 05/22/17 04:00 Pulse 99 05/22/17 04:00 Resp 18 05/22/17 04:00 BP 151/63 05/22/17 04:00 Pulse Ox 95 05/22/17 04:00 Intake & Output 05/21/17 05/22/17 05/22/17 18:59 06:59 18:59 Intake Total 150 600 Output Total 375 1550 Balance -225 -950 Weight 135.5 kg Intake: IV 75 Sodium Chloride 0.9% 1, 75 000 ml @ 75 mls/hr IV . [id number] [facility] Rx#:[id number] Intake, IV Titration 75 600 Amount Sodium Chloride 0.9% 1, 75 600 000 ml @ 75 mls/hr IV . [id number] [facility] Rx#:[id number] Output: Urine 375 1550 Other: Voiding Method Indwelling Catheter Incontinent Indwelling Catheter # Bowel Movements 1 1 - Exam gen:alert and oriented lungs:clear to auscultation heart:s1s2 abdomen:soft and depressible,non tender ext:no edema - Labs CBC & Chem 7: 05/22/17 05:49 05/22/17 05:49 Labs: Abnormal Lab Results - Last 24 Hours (Table) 05/19/17 05/21/17 05/21/17 Range/Units 03:35 12:27 17:51 WBC (3.8-10.6) k/uL RBC (3.80-5.40) m/uL Hgb (11.4-16.0) gm/dL Hct (34.0-46.0) % MCH (25.0-35.0) pg MCHC (31.0-37.0) g/dL RDW (11.5-15.5) % Neutrophils # (1.3-7.7) k/uL Chloride (98-107) mmol/L BUN (7-17) mg/dL Glucose (74-99) mg/dL POC Glucose (mg/dL) 201 H 192 H (75-99) mg/dL Total Protein (6.3-8.2) g/dL Albumin (3.5-5.0) g/dL Crossmatch See Detail 05/21/17 05/21/17 05/22/17 Range/Units 18:17 20:27 05:49 WBC 12.5 H (3.8-10.6) k/uL RBC 3.14 L 2.99 L (3.80-5.40) m/uL Hgb 7.6 L 7.3 L (11.4-16.0) gm/dL Hct 25.4 L 24.5 L (34.0-46.0) % MCH 24.1 L 24.4 L (25.0-35.0) pg MCHC 29.8 L 29.7 L (31.0-37.0) g/dL RDW 18.2 H 18.1 H (11.5-15.5) % Neutrophils # 9.2 H (1.3-7.7) k/uL Chloride (98-107) mmol/L BUN (7-17) mg/dL Glucose (74-99) mg/dL POC Glucose (mg/dL) 211 H (75-99) mg/dL Total Protein (6.3-8.2) g/dL Albumin (3.5-5.0) g/dL Crossmatch 05/22/17 05/22/17 Range/Units 05:49 06:10 WBC (3.8-10.6) k/uL RBC (3.80-5.40) m/uL Hgb (11.4-16.0) gm/dL Hct (34.0-46.0) % MCH (25.0-35.0) pg MCHC (31.0-37.0) g/dL RDW (11.5-15.5) % Neutrophils # (1.3-7.7) k/uL Chloride 111 H (98-107) mmol/L BUN 18 H (7-17) mg/dL Glucose 171 H (74-99) mg/dL POC Glucose (mg/dL) 192 H (75-99) mg/dL Total Protein 5.0 L (6.3-8.2) g/dL Albumin 2.7 L (3.5-5.0) g/dL Crossmatch Assessment and Plan (1) Upper GI bleed Narrative/Plan: s/p egd and cold coagulation no signs of active bleeding Current Visit: Yes Status: Acute Code(s): K92.2 - GASTROINTESTINAL HEMORRHAGE, UNSPECIFIED SNOMED Code(s): 90966219 (2) Acute blood loss anemia Narrative/Plan: hemoglobin stable no signs of further bleeding Current Visit: Yes Status: Acute Code(s): D62 - ACUTE POSTHEMORRHAGIC ANEMIA SNOMED Code(s): 730603316 (3) Atrial fibrillation Narrative/Plan: rate controlled on amidarone will add metoprolol(home dose 25mg bid) Current Visit: Yes Status: Chronic Code(s): I48.91 - UNSPECIFIED ATRIAL FIBRILLATION SNOMED Code(s): 91074659 (4) Essential hypertension Narrative/Plan: stable Current Visit: No Status: Acute Code(s): I10 - ESSENTIAL (PRIMARY) HYPERTENSION SNOMED Code(s): 57098237 (5) Type 2 diabetes mellitus with peripheral neuropathy Narrative/Plan: on 15 units of levemir while on clears controlled normally on 40u at home Current Visit: No Status: Acute Code(s): E11.42 - TYPE 2 DIABETES MELLITUS WITH DIABETIC POLYNEUROPATHY SNOMED Code(s): 4914962914479 (6) Morbid obesity with BMI of 40.0-44.9, adult Current Visit: Yes Status: Chronic Code(s): E66.01 - MORBID (SEVERE) OBESITY DUE TO EXCESS CALORIES; Z68.41 - BODY MASS INDEX (BMI) 40.0-44.9, ADULT SNOMED Code(s): 704176055 (7) Obstructive sleep apnea Current Visit: No Status: Acute Code(s): G47.33 - OBSTRUCTIVE SLEEP APNEA ( ADULT) (PEDIATRIC) SNOMED Code(s): 23992010
--- NOTE | 2017-05-22 11:22 | P.PN ---
Subjective Progress Note Date: 05/22/17 Principal diagnosis: GI bleed Progress note dated 05/22/2017 81-year-old female admitted to the ICU for acute GI bleed secondary to a prepyloric ulcer. She status post endoscopy with epinephrine injections and cold coagulation of the ulcer bed. She did receive 2 units of PRBCs. He was moved out from the ICU yesterday. She's currently resting comfortably on the floor. She has a history of atrial fibrillation for which she was on a factor X a inhibitor, CVA, diabetes mellitus, hyperlipidemia, hypertension, migraine cephalgia, DJD, and sleep apnea syndrome. The patient is doing much better. No additional bleeding. She stable hemodynamically and from the respiratory standpoint. I talked to the hospitalist was taking care of her. Many of her premorbid medications can be resumed. Objective - Vital Signs Vital signs: Vital Signs Temp 97.2 F L 05/22/17 08:00 Pulse 103 H 05/22/17 08:00 Resp 18 05/22/17 08:00 BP 117/77 05/22/17 08:00 Pulse Ox 98 05/22/17 08:00 Intake & Output 05/21/17 05/22/17 05/22/17 18:59 06:59 18:59 Intake Total 150 600 Output Total 375 1550 Balance -225 -950 Weight 135.5 kg Intake: IV 75 Sodium Chloride 0.9% 1, 75 000 ml @ 75 mls/hr IV . [id number] [facility] Rx#:[id number] Intake, IV Titration 75 600 Amount Sodium Chloride 0.9% 1, 75 600 000 ml @ 75 mls/hr IV . [id number] [facility] Rx#:[id number] Output: Urine 375 1550 Other: Voiding Method Indwelling Catheter Incontinent Incontinent Indwelling Catheter Indwelling Catheter # Bowel Movements 1 1 - Exam No acute distress, oriented 3. She is still a bit pale. HEENT examination is grossly unremarkable. Mucous membranes are moist. No oral lesions. Neck supple. Full range of motion. No adenopathy thyromegaly or neck vein distention. Cardiovascular examination reveals regular rhythm rate. S1-S2 normal. No S3 or S4. No discernible murmur noted. Lungs reveal clear breath sounds. Her sounds are equal bilaterally. No adventitious lung sounds including wheezes rhonchi or crackles. Abdomen soft bowel sounds are heard. No masses or tenderness. Extremities are intact. No cyanosis clubbing or edema. Skin is without rash or lesion. Neurologic examination is brief but nonfocal. - Labs CBC & Chem 7: 05/22/17 05:49 05/22/17 05:49 Labs: Abnormal Lab Results - Last 24 Hours (Table) 05/19/17 05/21/17 05/21/17 Range/Units 03:35 12:27 17:51 WBC (3.8-10.6) k/uL RBC (3.80-5.40) m/uL Hgb (11.4-16.0) gm/dL Hct (34.0-46.0) % MCH (25.0-35.0) pg MCHC (31.0-37.0) g/dL RDW (11.5-15.5) % Neutrophils # (1.3-7.7) k/uL Chloride (98-107) mmol/L BUN (7-17) mg/dL Glucose (74-99) mg/dL POC Glucose (mg/dL) 201 H 192 H (75-99) mg/dL Total Protein (6.3-8.2) g/dL Albumin (3.5-5.0) g/dL Crossmatch See Detail 05/21/17 05/21/17 05/22/17 Range/Units 18:17 20:27 05:49 WBC 12.5 H (3.8-10.6) k/uL RBC 3.14 L 2.99 L (3.80-5.40) m/uL Hgb 7.6 L 7.3 L (11.4-16.0) gm/dL Hct 25.4 L 24.5 L (34.0-46.0) % MCH 24.1 L 24.4 L (25.0-35.0) pg MCHC 29.8 L 29.7 L (31.0-37.0) g/dL RDW 18.2 H 18.1 H (11.5-15.5) % Neutrophils # 9.2 H (1.3-7.7) k/uL Chloride (98-107) mmol/L BUN (7-17) mg/dL Glucose (74-99) mg/dL POC Glucose (mg/dL) 211 H (75-99) mg/dL Total Protein (6.3-8.2) g/dL Albumin (3.5-5.0) g/dL Crossmatch 05/22/17 05/22/17 Range/Units 05:49 06:10 WBC (3.8-10.6) k/uL RBC (3.80-5.40) m/uL Hgb (11.4-16.0) gm/dL Hct (34.0-46.0) % MCH (25.0-35.0) pg MCHC (31.0-37.0) g/dL RDW (11.5-15.5) % Neutrophils # (1.3-7.7) k/uL Chloride 111 H (98-107) mmol/L BUN 18 H (7-17) mg/dL Glucose 171 H (74-99) mg/dL POC Glucose (mg/dL) 192 H (75-99) mg/dL Total Protein 5.0 L (6.3-8.2) g/dL Albumin 2.7 L (3.5-5.0) g/dL Crossmatch Assessment and Plan Assessment: Assessment Acute GI bleed secondary to a prepyloric ulcer, status post endoscopy with epinephrine injections and cold coagulation of the ulcer bed. The patient did receive 2 units of PRBCs. History of atrial fibrillation, currently on Eliquis History of CVA Diabetes mellitus History of hyperlipidemia History of hypertension History of migraine cephalgia DJD Sleep apnea syndrome, currently on CPAP Plan: Plan dated 05/20/2017 The patient seemed be relatively stable. I've asked the nurses to recheck hemoglobin every 6 hours 3. We'll check again in 6 hours and 6 hours after that. She seemed relatively stable this time. We'll continue to watch her closely. Prognosis is guarded. NG tube in place. Eliquis has been discontinued. No aspirin or NSAIDs or any other antiplatelet drugs at this time. Prognosis is guarded. We'll continue to watch carefully. Plan dated 05/22/2017 The patient moved out of the ICU yesterday. She is resting comfortably on the sixth floor. No additional bleeding or blood transfusions needed. The patient feels well. Respiratory status and hemodynamics as above stable. She continues on protonix and carafate. Time with Patient: Less than 30
[2017-05-22 12:06] LABS: Glucose,Whole Blood 274 mg/dL (75-99)
--- NOTE | 2017-05-22 12:25 | P.PN ---
Subjective Progress Note Date: 05/22/17 Principal diagnosis: Acute GI bleed Patient feels well today. No nausea or vomiting. Hemoglobin stable at 7.3. Objective - Vital Signs Vital signs: Vital Signs Temp 97.2 F L 05/22/17 08:00 Pulse 103 H 05/22/17 08:00 Resp 18 05/22/17 08:00 BP 117/77 05/22/17 08:00 Pulse Ox 98 05/22/17 08:00 Intake & Output 05/21/17 05/22/17 05/22/17 18:59 06:59 18:59 Intake Total 150 600 Output Total 375 1550 Balance -225 -950 Weight 135.5 kg Intake: IV 75 Sodium Chloride 0.9% 1, 75 000 ml @ 75 mls/hr IV . [id number] [facility] Rx#:[id number] Intake, IV Titration 75 600 Amount Sodium Chloride 0.9% 1, 75 600 000 ml @ 75 mls/hr IV . [id number] [facility] Rx#:[id number] Output: Urine 375 1550 Other: Voiding Method Indwelling Catheter Incontinent Incontinent Indwelling Catheter Indwelling Catheter # Bowel Movements 1 1 - Exam Abdomen: Soft, nontender, nondistended - Labs CBC & Chem 7: 05/22/17 05:49 05/22/17 05:49 Labs: Abnormal Lab Results - Last 24 Hours (Table) 05/19/17 05/21/17 05/21/17 Range/Units 03:35 12:27 17:51 WBC (3.8-10.6) k/uL RBC (3.80-5.40) m/uL Hgb (11.4-16.0) gm/dL Hct (34.0-46.0) % MCH (25.0-35.0) pg MCHC (31.0-37.0) g/dL RDW (11.5-15.5) % Neutrophils # (1.3-7.7) k/uL Chloride (98-107) mmol/L BUN (7-17) mg/dL Glucose (74-99) mg/dL POC Glucose (mg/dL) 201 H 192 H (75-99) mg/dL Total Protein (6.3-8.2) g/dL Albumin (3.5-5.0) g/dL Crossmatch See Detail 05/21/17 05/21/17 05/22/17 Range/Units 18:17 20:27 05:49 WBC 12.5 H (3.8-10.6) k/uL RBC 3.14 L 2.99 L (3.80-5.40) m/uL Hgb 7.6 L 7.3 L (11.4-16.0) gm/dL Hct 25.4 L 24.5 L (34.0-46.0) % MCH 24.1 L 24.4 L (25.0-35.0) pg MCHC 29.8 L 29.7 L (31.0-37.0) g/dL RDW 18.2 H 18.1 H (11.5-15.5) % Neutrophils # 9.2 H (1.3-7.7) k/uL Chloride (98-107) mmol/L BUN (7-17) mg/dL Glucose (74-99) mg/dL POC Glucose (mg/dL) 211 H (75-99) mg/dL Total Protein (6.3-8.2) g/dL Albumin (3.5-5.0) g/dL Crossmatch 05/22/17 05/22/17 05/22/17 Range/Units 05:49 06:10 11:52 WBC (3.8-10.6) k/uL RBC (3.80-5.40) m/uL Hgb (11.4-16.0) gm/dL Hct (34.0-46.0) % MCH (25.0-35.0) pg MCHC (31.0-37.0) g/dL RDW (11.5-15.5) % Neutrophils # (1.3-7.7) k/uL Chloride 111 H (98-107) mmol/L BUN 18 H (7-17) mg/dL Glucose 171 H (74-99) mg/dL POC Glucose (mg/dL) 192 H 274 H (75-99) mg/dL Total Protein 5.0 L (6.3-8.2) g/dL Albumin 2.7 L (3.5-5.0) g/dL Crossmatch Assessment and Plan (1) Upper GI bleed Narrative/Plan: Continue advancing diet. Monitor hemoglobin. Hopefully discharge soon. Current Visit: Yes Status: Acute Code(s): K92.2 - GASTROINTESTINAL HEMORRHAGE, UNSPECIFIED SNOMED Code(s): 85727702
--- NOTE | 2017-05-22 12:43 | PN ---
PROGRESS NOTE DATE OF SERVICE: 05/22/17 Patient is an 81-year-old pleasant white female admitted to the hospital with acute upper gastrointestinal had an upper endoscopy done 3 days ago and was noted to have a large antral ulcer with active bleeding which was cauterized. The patient since then is doing. She did not have any abdominal pain, nausea, vomiting. She had some dark stool last night. She is status post total 4 units of blood transfusion. PHYSICAL EXAMINATION: She appears comfortable in no apparent distress. Vital signs are stable. Blood pressure is 151/63, pulse rate 99, temperature 99.3. HEENT examination unremarkable. Conjunctivae pink. Sclerae anicteric. Oral cavity no lesions. Neck no jugular venous distention or lymph node enlargement. Chest was clear to auscultation. HEART: Regular rate and rhythm. ABDOMEN: Soft. Bowel sounds are positive. No organomegaly. Extremities no pedal edema. Skin no rashes. NEUROLOGIC: Alert and oriented x3. No focal deficits. LAB: From today WBC 9.7, hemoglobin 7.3, platelets are 240. Rest of the labs are within normal limits. IMPRESSION: Acute upper gastrointestinal bleed secondary to antral ulcer, status post EGD with cautery 3 days ago. Hemoglobin at 7.3 g/dL. No recent bleeding so far. RECOMMENDATION: 1. Continue with a full liquid diet for today. 2. Protonix 40 mg twice daily. 3. CBC in the morning. 4. If she is stable, she can be discharged home tomorrow with an outpatient follow up in 2 weeks. MMODL / IJN: [id number] /
[2017-05-22] MEDS: METOPROLOL TARTRATE 25 MG TAB PO SCH ×2 (12:47→20:39)
[2017-05-22 17:24] LABS: Glucose,Whole Blood 219 mg/dL (75-99)
[2017-05-22 21:14] LABS: Glucose,Whole Blood 316 mg/dL (75-99)
[2017-05-22] MEDS: INSULIN DETEMIR 100 UNIT/ML 10 ML VIAL SQ SCH (21:26)
[2017-05-22 22:05] VITALS: RESP 16
[2017-05-23] MEDS: SODIUM CHLORIDE 0.9% 1,000 ML IV SCH ×2 (03:10→09:42)
[2017-05-23] MEDS: SUCRALFATE 1 GM TAB PO SCH ×2 (06:10→12:34)
[2017-05-23 06:25] LABS: Glucose,Whole Blood 186 mg/dL (75-99)
[2017-05-23] MEDS: INSULIN ASPART 100 UNIT/ML 1 ML 10 ML VIAL SQ SCH ×2 (06:33→12:34)
[2017-05-23 06:42] LABS: Anisocytosis Slight; Basophils # (A) 0.1 k/uL (0-0.2); Basophils % (A) 1 %; Eosinophils # (A) 0.2 k/uL (0-0.7); Eosinophils % (A) 2 %; HCT 25.5 % (34.0-46.0); HGB 7.8 gm/dL (11.4-16.0); Hypochromasia Moderate; Lymphocytes # (A) 2.8 k/uL (1.0-4.8); Lymphocytes % (A) 25 %; MCH 24.9 pg (25.0-35.0); MCHC 30.7 g/dL (31.0-37.0); MCV 81.3 fL (80.0-100.0); Mean Platelet Volume 7.8; Monocytes # (A) 0.5 k/uL (0-1.0); Monocytes % (A) 4 %; Neutrophils # (A) 7.3 k/uL (1.3-7.7); Neutrophils % (A) 66 %; Platelet Count 281 k/uL (150-450); Poikilocytosis Slight; RBC 3.14 m/uL (3.80-5.40); RDW 18.4 % (11.5-15.5)
[2017-05-23 07:06] LABS: Calcium 9.4 mg/dL (8.4-10.2); Magnesium 1.5 mg/dL (1.6-2.3); Phosphorus 3.6 mg/dL (2.5-4.5); Potassium 4.5 mmol/L (3.5-5.1); Total Bilirubin 0.3 mg/dL (0.2-1.3); Total Protein 5.5 g/dL (6.3-8.2)
--- NOTE | 2017-05-23 08:48 | P.PN ---
Subjective Progress Note Date: 05/23/17 Principal diagnosis: gi bleed No bleeding overnight, no abdominal pain, no nausea and vomiting, she had bowel movement last night with no signs of bleeding Objective - Vital Signs Vital signs: Vital Signs Temp 99.0 F 05/23/17 04:00 Pulse 87 05/23/17 04:00 Resp 16 05/23/17 04:00 BP 116/74 05/23/17 04:00 Pulse Ox 97 05/23/17 04:00 Intake & Output 05/22/17 05/23/17 05/23/17 18:59 06:59 18:59 Intake Total 450 900 Output Total 3450 Balance 450 -2550 Weight 137 kg Intake: Intake, IV Titration 450 900 Amount Sodium Chloride 0.9% 1, 450 900 000 ml @ 75 mls/hr IV . [id number] [facility] Rx#:[id number] Output: Urine 3450 Other: Voiding Method Incontinent Incontinent Indwelling Catheter Indwelling Catheter - Exam gen:alert and oriented lungs:clear to auscultation heart:s1s2 abdomen:soft and depressible,non tender ext:no edema - Labs CBC & Chem 7: 05/23/17 05:54 05/23/17 05:54 Labs: Abnormal Lab Results - Last 24 Hours (Table) 05/22/17 05/22/17 05/22/17 Range/Units 11:52 16:55 21:13 WBC (3.8-10.6) k/uL RBC (3.80-5.40) m/uL Hgb (11.4-16.0) gm/dL Hct (34.0-46.0) % MCH (25.0-35.0) pg MCHC (31.0-37.0) g/dL RDW (11.5-15.5) % Chloride (98-107) mmol/L Glucose (74-99) mg/dL POC Glucose (mg/dL) 274 H 219 H 316 H (75-99) mg/dL Magnesium (1.6-2.3) mg/dL Total Protein (6.3-8.2) g/dL Albumin (3.5-5.0) g/dL 05/23/17 05/23/17 05/23/17 Range/Units 05:54 05:54 06:22 WBC 11.0 H (3.8-10.6) k/uL RBC 3.14 L (3.80-5.40) m/uL Hgb 7.8 L (11.4-16.0) gm/dL Hct 25.5 L (34.0-46.0) % MCH 24.9 L (25.0-35.0) pg MCHC 30.7 L (31.0-37.0) g/dL RDW 18.4 H (11.5-15.5) % Chloride 109 H (98-107) mmol/L Glucose 164 H (74-99) mg/dL POC Glucose (mg/dL) 186 H (75-99) mg/dL Magnesium 1.5 L (1.6-2.3) mg/dL Total Protein 5.5 L (6.3-8.2) g/dL Albumin 3.0 L (3.5-5.0) g/dL Assessment and Plan (1) Upper GI bleed Narrative/Plan: secondary to bleeding ulcer. s/p epi injection and growth probe coagulation still on clears advance diet when ok with gi and surgery Current Visit: Yes Status: Acute Code(s): K92.2 - GASTROINTESTINAL HEMORRHAGE, UNSPECIFIED SNOMED Code(s): 71471565 (2) Acute blood loss anemia Narrative/Plan: hemoglobin stable no signs of bleeding Current Visit: Yes Status: Acute Code(s): D62 - ACUTE POSTHEMORRHAGIC ANEMIA SNOMED Code(s): 547584275 (3) Atrial fibrillation Narrative/Plan: rate controlled continue amiodarone and metoprolol Current Visit: Yes Status: Chronic Code(s): I48.91 - UNSPECIFIED ATRIAL FIBRILLATION SNOMED Code(s): 23570630 (4) Essential hypertension Narrative/Plan: controlled Current Visit: No Status: Acute Code(s): I10 - ESSENTIAL (PRIMARY) HYPERTENSION SNOMED Code(s): 78406640 (5) Type 2 diabetes mellitus with peripheral neuropathy Narrative/Plan: uncontrolled will increase levemor to 25 units Current Visit: No Status: Acute Code(s): E11.42 - TYPE 2 DIABETES MELLITUS WITH DIABETIC POLYNEUROPATHY SNOMED Code(s): 1478954197701 (6) Morbid obesity with BMI of 40.0-44.9, adult Current Visit: Yes Status: Chronic Code(s): E66.01 - MORBID (SEVERE) OBESITY DUE TO EXCESS CALORIES; Z68.41 - BODY MASS INDEX (BMI) 40.0-44.9, ADULT SNOMED Code(s): 366874878 (7) Obstructive sleep apnea Current Visit: No Status: Acute Code(s): G47.33 - OBSTRUCTIVE SLEEP APNEA ( ADULT) (PEDIATRIC) SNOMED Code(s): 21692600 Plan: discharge plans per gi and surgery
[2017-05-23] MEDS ORDERED: INSULIN DETEMIR 100 UNIT/ML 10 ML VIAL SQ ONE (09:05)
[2017-05-23] MEDS: METOPROLOL TARTRATE 25 MG TAB PO SCH (09:41)
[2017-05-23] MEDS: AMIODARONE 200 MG TAB PO SCH (09:41)
[2017-05-23] MEDS: PANTOPRAZOLE 40 MG/10 ML VIAL IVP SCH (09:41)
[2017-05-23] MEDS: SERTRALINE 50 MG TAB PO SCH (09:42)
[2017-05-23] MEDS: MORPHINE SULFATE/PF 10MG/10ML VL IVP PRN (09:56)
--- NOTE | 2017-05-23 11:24 | P.DS ---
Providers Date of admission: 05/19/17 04:26 Expected date of discharge: 05/23/17 Attending physician: Osman Deras MD Consults: 05/19/17 06:26 Consult Physician Routine Consulting Provider: Manolo Mathias Consult Reason/Comments: GI bleed Do you want consulting provider notified?: Yes 05/19/17 09:31 Consult Physician Urgent Consulting Provider: Jake Banda Consult Reason/Comments: UGI bleed Do you want consulting provider notified?: Already Contacted 05/19/17 14:15 Consult Physician Urgent Consulting Provider: Rashard Olvera Consult Reason/Comments: gi bleed Do you want consulting provider notified?: Already Contacted Primary care physician: Stephanie Feldman - Mary Diagnosis(es) (1) Upper GI bleed Current Visit: Yes Status: Acute (2) Acute blood loss anemia Current Visit: Yes Status: Acute (3) Atrial fibrillation Current Visit: Yes Status: Chronic (4) Essential hypertension Current Visit: No Status: Acute (5) Type 2 diabetes mellitus with peripheral neuropathy Current Visit: No Status: Acute (6) Morbid obesity with BMI of 40.0-44.9, adult Current Visit: Yes Status: Chronic (7) Obstructive sleep apnea Current Visit: No Status: Acute Hospital Course: This is a 81 y/o female that was admitted with GI bleed. Patient had egd on which showed bleeding prepyloric ulcer. This was injected endoscopically with epinephrine. Subsequently, patient recieved 1 unit of blood. But has been stable with no signs of bleeding. Patient was transfered from [facility] to [facility]. Patient has tolerated clears and started on soft diet. nd again no further signs of bleeding. Discussed with aldo Garcia for 2 weeks. Patient to follow up with PCP, Dr Mathias. Discharge time 32 min Patient Condition at Discharge: Stable Plan - Discharge Summary Discharge Rx Participant: Yes New Discharge Prescriptions: New Pantoprazole Sodium [Protonix] 40 mg PO DAILY #30 tablet. Sucralfate [Carafate] 1 gm PO AC-TID #90 tab Continue LORazepam [Ativan] 1 mg PO TID PRN PRN Reason: Agitation Or Acute Anxiety Sertraline HCl [Zoloft] 75 mg PO QAM Methocarbamol [Robaxin-750] 750 mg PO TID Cyanocobalamin (Vitamin B-12) [Vitamin B-12] 1,000 mcg PO DAILY glipiZIDE [Glucotrol] 10 mg PO AC-BID amLODIPine BESYLATE [Norvasc] 10 mg PO QAM Hydrochlorothiazide 25 mg PO QAM Gabapentin [Neurontin] 300 mg PO BID Insulin Glargine [Lantus] 40 unit SQ HS Furosemide [Lasix] 20 mg PO DAILY PRN PRN Reason: swelling Fluticasone Nasal [place] [Flonase Nasal [place]] 1 spr EA NOSTRIL DAILY PRN PRN Reason: Congestion Albuterol Sulfate [Proair Hfa] 2 puff INHALATION RT-Q4H PRN PRN Reason: Shortness Of Breath Metoprolol Tartrate [Lopressor] 25 mg PO BID Ramipril [Altace] 10 mg PO BID Cholecalciferol [Vitamin D3] 1,000 unit PO DAILY Amiodarone [Cordarone] 200 mg PO BID oxyCODONE-APAP 5-325MG [Percocet 5-325 mg] 1 tab PO TID PRN PRN Reason: Pain Discontinued Apixaban [Eliquis] 5 mg PO BID Discharge Medication List Cyanocobalamin (Vitamin B-12) [Vitamin B-12] 1,000 mcg PO DAILY 09/17/16 [ History] Gabapentin [Neurontin] 300 mg PO BID 09/17/16 [History] Hydrochlorothiazide 25 mg PO QAM 09/17/16 [History] Insulin Glargine [Lantus] 40 unit SQ HS 09/17/16 [History] LORazepam [Ativan] 1 mg PO TID PRN 09/17/16 [History] Methocarbamol [Robaxin-750] 750 mg PO TID 09/17/16 [History] Sertraline HCl [Zoloft] 75 mg PO QAM 09/17/16 [History] amLODIPine BESYLATE [Norvasc] 10 mg PO QAM 09/17/16 [History] glipiZIDE [Glucotrol] 10 mg PO AC-BID 09/17/16 [History] Albuterol Sulfate [Proair Hfa] 2 puff INHALATION RT-Q4H PRN 01/13/17 [History] Fluticasone Nasal [place] [Flonase Nasal [place]] 1 spr EA NOSTRIL DAILY PRN [History] Furosemide [Lasix] 20 mg PO DAILY PRN 01/13/17 [History] Metoprolol Tartrate [Lopressor] 25 mg PO BID 01/13/17 [History] Ramipril [Altace] 10 mg PO BID 01/13/17 [History] Amiodarone [Cordarone] 200 mg PO BID 05/19/17 [History] Cholecalciferol [Vitamin D3] 1,000 unit PO DAILY 05/19/17 [History] oxyCODONE-APAP 5-325MG [Percocet 5-325 mg] 1 tab PO TID PRN 05/19/17 [History] Pantoprazole Sodium [Protonix] 40 mg PO DAILY #30 tablet. 05/23/17 [Rx] Sucralfate [Carafate] 1 gm PO AC-TID #90 tab 05/23/17 [Rx] Follow up Appointment(s)/Referral(s): Jake Banda MD [Medical Doctor] - 2 Weeks (Phone lines are down. Please call to schedule appointment) Manolo Mathias MD [STAFF PHYSICIAN] - 2 Weeks Stephanie Feldman MD [Primary Care Provider] - 06/10/17 9:45 am (Tuesday) Patient Instructions/Handouts: Gastrointestinal Bleeding (DC), Upper Endoscopy (DC) Activity/Diet/Wound Care/Special Instructions: Hold Eliquis x2 weeks per Dr. Mauro Segura Can resume Regular Diet in [address] Banda Care Plan Goals (MU): resume soft diet for 2 days, then start regular diet Discharge Disposition: HOME SELF-CARE
[2017-05-23 11:41] LABS: Glucose,Whole Blood 230 mg/dL (75-99)
[2017-05-23] MEDS: MAGNESIUM SULFATE-D5W PMX 1 GM in DEXTROSE/WATER 1 100ML.BAG IVPB SCH ×3 (12:14→13:59)
[2017-05-23 13:35] VITALS: BP 109/57; PULSE 98; TEMP 97.2
--- NOTE | 2017-05-23 17:08 | P.PN ---
Subjective Progress Note Date: 05/23/17 Principal diagnosis: Acute GI bleed secondary to prepyloric ulcer, status post endoscopy with epinephrine injections and cold coagulation of the ulcer bed Progress note dated 05/22/2017 81-year-old female admitted to the ICU for acute GI bleed secondary to a prepyloric ulcer. She status post endoscopy with epinephrine injections and cold coagulation of the ulcer bed. She did receive 2 units of PRBCs. He was moved out from the ICU yesterday. She's currently resting comfortably on the floor. She has a history of atrial fibrillation for which she was on a factor X a inhibitor, CVA, diabetes mellitus, hyperlipidemia, hypertension, migraine cephalgia, DJD, and sleep apnea syndrome. The patient is doing much better. No additional bleeding. She stable hemodynamically and from the respiratory standpoint. I talked to the hospitalist was taking care of her. Many of her premorbid medications can be resumed. On 05/23/2016 patient's follow-up. She is resting comfortably in bed, on room air, pulse ox 97%. She is afebrile, hemodynamically stable. Today's hemoglobin is 7.8, and patient has not had any recurrence of GI bleeding. Patient's Eliquis remains on hold. She denies any shortness of breath or chest pain. Objective - Vital Signs Vital signs: Vital Signs Temp 97.2 F L 05/23/17 12:00 Pulse 98 05/23/17 12:00 Resp 16 05/23/17 12:00 BP 109/57 05/23/17 12:00 Pulse Ox 97 05/23/17 12:00 Intake & Output 05/22/17 05/23/17 05/23/17 18:59 06:59 18:59 Intake Total 450 900 700 Output Total 3450 Balance 450 -2550 700 Weight 137 kg Intake: Intake, IV Titration 450 900 Amount Sodium Chloride 0.9% 1, 450 900 000 ml @ 75 mls/hr IV . [id number] CHUCK Rx#:[id number] Oral 700 Output: Urine 3450 Other: Voiding Method Incontinent Incontinent Incontinent Indwelling Catheter Indwelling Catheter # Voids 1 # Bowel Movements 1 - Exam No acute distress, oriented 3. She is still a bit pale. HEENT examination is grossly unremarkable. Mucous membranes are moist. No oral lesions. Neck supple. Full range of motion. No adenopathy thyromegaly or neck vein distention. Cardiovascular examination reveals regular rhythm rate. S1-S2 normal. No S3 or S4. No discernible murmur noted. Lungs reveal clear breath sounds. Her sounds are equal bilaterally. No adventitious lung sounds including wheezes rhonchi or crackles. Abdomen soft bowel sounds are heard. No masses or tenderness. Extremities are intact. No cyanosis clubbing or edema. Skin is without rash or lesion. Neurologic examination is brief but nonfocal. - Labs CBC & Chem 7: 05/23/17 05:54 05/23/17 05:54 Labs: Abnormal Lab Results - Last 24 Hours (Table) 05/22/17 05/22/17 05/23/17 Range/Units 16:55 21:13 05:54 WBC 11.0 H (3.8-10.6) k/uL RBC 3.14 L (3.80-5.40) m/uL Hgb 7.8 L (11.4-16.0) gm/dL Hct 25.5 L (34.0-46.0) % MCH 24.9 L (25.0-35.0) pg MCHC 30.7 L (31.0-37.0) g/dL RDW 18.4 H (11.5-15.5) % Chloride (98-107) mmol/L Glucose (74-99) mg/dL POC Glucose (mg/dL) 219 H 316 H (75-99) mg/dL Magnesium (1.6-2.3) mg/dL Total Protein (6.3-8.2) g/dL Albumin (3.5-5.0) g/dL 05/23/17 05/23/17 05/23/17 Range/Units 05:54 06:22 11:35 WBC (3.8-10.6) k/uL RBC (3.80-5.40) m/uL Hgb (11.4-16.0) gm/dL Hct (34.0-46.0) % MCH (25.0-35.0) pg MCHC (31.0-37.0) g/dL RDW (11.5-15.5) % Chloride 109 H (98-107) mmol/L Glucose 164 H (74-99) mg/dL POC Glucose (mg/dL) 186 H 230 H (75-99) mg/dL Magnesium 1.5 L (1.6-2.3) mg/dL Total Protein 5.5 L (6.3-8.2) g/dL Albumin 3.0 L (3.5-5.0) g/dL Assessment and Plan Plan: Assessment: Acute GI bleed secondary to a prepyloric ulcer, status post endoscopy with epinephrine injections and cold coagulation of the ulcer bed. The patient did receive 2 units of PRBCs. History of atrial fibrillation, currently on Eliquis History of CVA Diabetes mellitus History of hyperlipidemia History of hypertension History of migraine cephalgia DJD Sleep apnea syndrome, currently on CPAP Plan: Patient remains hemodynamically stable, she has not had any recurrence of GI bleeding. She denies any chest pain, denies dyspnea. Vital signs are stable. From pulmonary/critical care standpoint patient remains stable. She is anticipated to be discharged home I performed a history & physical examination of the patient and discussed their management with my nurse practitioner, Jill Mortensen. I reviewed the nurse practitioner's note and agree with the documented findings and plan of care. Lung sounds are positive for clear breath sounds. The findings and the impression was discussed with the patient. I attest to the documentation by the nurse practitioner. Time with Patient: Less than 30
[2017-05-23] MEDS ORDERED: INSULIN DETEMIR 100 UNIT/ML 10 ML VIAL SQ SCH (21:00)
== END 2017-05-23 16:14 | disposition home or self-care (01) | DRG 377 ==
LOC: EC 02:56 → 4MS4W 04:26 → 6ICU 13:23 → 6SEL 05-22 03:52
PROVIDERS: ADMIT Internal Medicine; ATTEND Internal Medicine
PROC: 0W3P8ZZ Control Bleeding in Gastrointestinal Tract, Via Natural or Artificial Opening Endoscopic (ICD-10-PCS; 2017-05-19)
PROC: 30233N1 Transfusion of Nonautologous Red Blood Cells into Peripheral Vein, Percutaneous Approach (ICD-10-PCS; principal; 2017-05-19 08:00)
DX: K25.4 Chronic or unspecified gastric ulcer with hemorrhage (principal); N17.0 Acute kidney failure with tubular necrosis; E87.2 Acidosis; D62 Acute posthemorrhagic anemia; I69.351 Hemiplegia and hemiparesis following cerebral infarction affecting right dominant side; Z68.41 Body mass index [BMI] 40.0-44.9, adult; E11.65 Type 2 diabetes mellitus with hyperglycemia; E11.42 Type 2 diabetes mellitus with diabetic polyneuropathy; E66.01 Morbid (severe) obesity due to excess calories; E87.5 Hyperkalemia; I48.0 Paroxysmal atrial fibrillation; E78.5 Hyperlipidemia, unspecified; M19.90 Unspecified osteoarthritis, unspecified site; J45.909 Unspecified asthma, uncomplicated; F41.9 Anxiety disorder, unspecified; F32.9 Major depressive disorder, single episode, unspecified; I10 Essential (primary) hypertension; G47.33 Obstructive sleep apnea (adult) (pediatric); Z88.8 Allergy status to other drugs, medicaments and biological substances; Z79.899 Other long term (current) drug therapy; Z79.891 Long term (current) use of opiate analgesic; Z79.4 Long term (current) use of insulin; Z87.11 Personal history of peptic ulcer disease; Z79.01 Long term (current) use of anticoagulants; Z82.3 Family history of stroke; Z82.49 Family history of ischemic heart disease and other diseases of the circulatory system; Z90.710 Acquired absence of both cervix and uterus; Z96.652 Presence of left artificial knee joint; Z87.19 Personal history of other diseases of the digestive system; Z98.41 Cataract extraction status, right eye; Z86.14 Personal history of Methicillin resistant Staphylococcus aureus infection; Z86.69 Personal history of other diseases of the nervous system and sense organs; Z86.19 Personal history of other infectious and parasitic diseases
CPT/HCPCS: 36415; 43255; 80048; 80053; 82553; 83036; 83605; 83690; 83735; 84100; 84484; 85025; 85610; 85730; 86850; 86900; 86901; 86920; 93005; 96361; 96374; 96375; 99284

== ENCOUNTER → 2017-05-30 | Outpatient (CLI) | payer MEDICARE ==
[2017-05-30 11:10] LABS: Anisocytosis Slight; HGB 7.7 gm/dL (11.4-16.0); Hypochromasia Marked; MCH 24.7 pg (25.0-35.0); MCHC 30.6 g/dL (31.0-37.0); MCV 80.6 fL (80.0-100.0); Mean Platelet Volume 8.1; Microcytosis Slight; Platelet Count 403 k/uL (150-450); Poikilocytosis Slight; RDW 17.9 % (11.5-15.5); WBC 9.9 k/uL (3.8-10.6)
== END | disposition home or self-care (01) ==
LOC: LABWHC1 10:41
PROVIDERS: ATTEND Internal Medicine
DX: K27.4 Chronic or unspecified peptic ulcer, site unspecified, with hemorrhage (principal)
CPT/HCPCS: 36415; 85027

== ENCOUNTER 2017-05-31 12:54 | Emergency (ER) | payer MEDICARE ==
[2017-05-31] MEDS ORDERED: ALBUTEROL NEBULIZED 2.5 MG/3 ML INHALATION STA (13:02)
[2017-05-31 13:08] VITALS: TEMP 97.3
[2017-05-31] MEDS ORDERED: AMIODARONE 450 MG in DEXTROSE 5% IN WATER 250 ML IV ONE ×2 (13:15)
[2017-05-31] MEDS ORDERED: DEXTROSE 5% IN WATER 100 ML with AMIODARONE 150 MG IV ONE (13:15)
[2017-05-31 13:26] LABS: Albumin 3.4 g/dL (3.5-5.0); Anisocytosis Slight; Basophils # (A) 0.1 k/uL (0-0.2); Basophils % (A) 1 %; Calcium 9.3 mg/dL (8.4-10.2); Eosinophils # (A) 0.3 k/uL (0-0.7); Eosinophils % (A) 2 %; HCT 28.9 % (34.0-46.0); HGB 8.2 gm/dL (11.4-16.0); Hypochromasia Marked; Lymphocytes # (A) 3.9 k/uL (1.0-4.8); Lymphocytes % (A) 20 %; MCH 23.5 pg (25.0-35.0); MCHC 28.2 g/dL (31.0-37.0); MCV 83.3 fL (80.0-100.0); Mean Platelet Volume 7.6; Monocytes # (A) 0.6 k/uL (0-1.0); Monocytes % (A) 3 %; Neutrophils # (A) 14.9 k/uL (1.3-7.7); Neutrophils % (A) 74 %; Platelet Count 701 k/uL (150-450); Poikilocytosis Slight; Potassium 4.3 mmol/L (3.5-5.1); RBC 3.47 m/uL (3.80-5.40); RDW 17.5 % (11.5-15.5); Total Bilirubin 0.7 mg/dL (0.2-1.3); Total Protein 6.1 g/dL (6.3-8.2); WBC 20.1 k/uL (3.8-10.6)
[2017-05-31] MEDS ORDERED: AMIODARONE 50 MG/ML 3 ML VIAL IV ONE (13:26)
[2017-05-31] MEDS ORDERED: SODIUM BICARB 8.4% 50 ML SYR (1 MEQ/ML) ONE (13:26)
[2017-05-31] MEDS ORDERED: DEXTROSE 5% IN WATER 50 ML BAG ONE (13:26)
[2017-05-31] MEDS ORDERED: MAGNESIUM SULFATE SYG 4.06 MEQ/ML SYRINGE ONE (13:26)
[2017-05-31] MEDS ORDERED: EPINEPHrine 10 ML SYRINGE (0.1 MG/ML) ONE (13:26)
--- NOTE | 2017-05-31 13:30 | XR ---
EXAMINATION TYPE: XR chest 1V DATE OF EXAM: 05/31/2017 COMPARISON: NONE HISTORY: Enteric tube and orogastric tube placement TECHNIQUE: Single frontal view of the chest is obtained. FINDINGS: Enteric tube is appropriately placed with its distal tip at the level of the aortic arch. Orogastric tube courses beyond the distal [id number] as also appropriately placed. Cholecystectomy clips reside within the right upper quadrant. Heart is enlarged. Central opacities radiate from the kylie peripherally with sparing of the peripheral lung. No sizable pneumothorax or pleural effusion. O sseous structures are grossly intact. IMPRESSION: 1. Appropriately placed enteric and endotracheal tubes. 2. Central predominant bilateral opacities may represent pulmonary edema or pulmonary hemorrhage.
[2017-05-31 13:43] LABS: D-Dimer 2.87 mg/L FEU (<0.60); Partial Thromboplastin Time 22.3 sec (22.0-30.0); Prothrombin Time 10.2 sec (9.0-12.0)
[2017-05-31 13:48] LABS: Creatine Kinase MB 0.8 ng/mL (0.0-2.4); Troponin I 0.021 ng/mL (0.000-0.034)
[2017-05-31] MEDS ORDERED: SUCCINYLCHOLINE CHLORIDE VIAL 200 MG/10 ML VIAL IV STA (15:04)
[2017-05-31] MEDS ORDERED: ETOMIDATE 2 MG/ML 10 ML VIAL IVP STA (15:06)
[2017-05-31] MEDS ORDERED: ROCURONIUM BROMIDE 10 MG/ML 10 ML VIAL IV STA (15:06)
[2017-05-31 15:52] VITALS: BP 133/72; PULSE 140; RESP 16
--- NOTE | 2017-05-31 18:54 | ED ---
SOB HPI - General Chief Complaint: Shortness of Breath Stated Complaint: MARVIN Time Seen by Provider: 05/31/17 13:02 Source: EMS Mode of arrival: EMS Limitations: altered mental status - History of Present Illness Initial Comments: 81 years old female brought in by family with a shortness of breath EMS stated that O2 sat was in mid 70s at home and she was breathing at 30 breaths per minute she was using accessory muscles she has not had has a hard time speaking , she denies any chest pain as such stated chest pain only with deep breaths him a has been coughing with some phlegm has a history of atrial fibrillation according to the family and now anticoagulants were recently stopped any abdominal pain no frequency urgency dysuria no symptoms of TIA or CVA, - Related Data Home Medications Medication Instructions Recorded Confirmed Gabapentin [Neurontin] 300 mg PO BID 09/17/16 05/31/17 Insulin Glargine [Lantus] 40 unit SQ HS 09/17/16 05/31/17 LORazepam [Ativan] 1 mg PO TID PRN 09/17/16 05/31/17 Methocarbamol [Robaxin-750] 750 mg PO TID PRN 09/17/16 05/31/17 Sertraline HCl [Zoloft] 75 mg PO QAM 09/17/16 05/31/17 glipiZIDE [Glucotrol] 10 mg PO AC-BID 09/17/16 05/31/17 Albuterol Sulfate [Proair Hfa] 2 puff INHALATION RT-Q4H PRN 01/13/17 05/31/17 Fluticasone Nasal [place] [Flonase 1 spr EA NOSTRIL DAILY PRN 01/13/17 05/31/17 Nasal [place]] Metoprolol Tartrate [Lopressor] 50 mg PO BID 01/13/17 05/31/17 oxyCODONE-APAP 5-325MG [Percocet 1 tab PO TID PRN 05/19/17 05/31/17 5-325 mg] Previous Rx's Medication Instructions Recorded Pantoprazole Sodium [Protonix] 40 mg PO DAILY #30 tablet. 05/23/17 Sucralfate [Carafate] 1 gm PO AC-TID #90 tab 05/23/17 Allergies Allergy/AdvReac Type Severity Reaction Status Date / Time atorvastatin Allergy Unknown Verified 05/31/17 13:10 pregabalin [From Lyrica] Allergy nystaigmus Verified 05/31/17 13:10 ibuprofen [From Motrin] AdvReac Abdominal Verified 05/31/17 13:10 Pain Review of Systems ROS Statement: Those systems with pertinent positive or pertinent negative responses have been documented in the HPI. ROS Other: All systems not noted in ROS Statement are negative. 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 History of Any Multi-Drug Resistant Organisms: MRSA Date of last positivie culture/infection: 12/2016 MDRO Source:: nasal Past Surgical History: Hysterectomy, Joint Replacement, Orthopedic Surgery Additional Past Surgical History / Comment(s): Colonoscopy 10 yrs ago, R/L knee replacement, L foot surgery for bunionectomy, hemorrhoidectomy, rt cataract. Past Anesthesia/Blood Transfusion Reactions: No Reported Reaction Additional Past Anesthesia/Blood Transfusion Reaction / Comment(s): no complications with prior blood transfusion Past Psychological History: Anxiety, Depression Smoking Status: Never smoker - Past Family History Mother Family Medical History: CVA/TIA Additional Family Medical History / Comment(s): Mother of a CVA at the age of 77yrs. Father Family Medical History: Myocardial Infarction (PR) Additional Family Medical History / Comment(s): Father had his first PR at the age of 49yrs and at age 59 from a PR. General Exam - General Exam Comments Initial Comments: General: The patient is awake in severe distress hardly able to talk he is using accessory muscles respiratory rate 30 breaths per minute Skin: Skin is pale Eye: Pupils are equal, round and reactive to light, extra-ocular movements are intact; there is normal conjunctiva bilaterally. Ears, nose, mouth and throat: He looks quite dehydrated Neck: The neck is supple, there is no tenderness Cardiovascular: There is some mid regular rhythm at the rate of 150 bpm Respiratory: To auscultation bilateral, raccoons bilateral barely moving any air Gastrointestinal: Soft, non-distended, non-tender abdomen without masses or organomegaly noted. There is no rebound or guarding present. Bowel sounds are unremarkable. Back: There is no tenderness to palpation in the midline. There is no obvious deformity. Musculoskeletal: Normal ROM, no tenderness, There is no pedal edema. There is no calf tenderness or swelling. No cords were appreciated. Neurological: CN II-XII intact, Cranial nerves III through XII are intact. There are no obvious motor or sensory deficits. Coordination appears grossly intact. Speech is normal. Psychiatric: Cooperative, appropriate mood & affect, normal judgment. Limitations: altered mental status Course Vital Signs 05/31/17 05/31/17 13:05 13:15 Temperature 97.3 F L Pulse Rate 149 H 140 H Respiratory 35 H 16 Rate Blood Pressure 245/200 133/72 O2 Sat by Pulse 97 95 Oximetry KG is undetermined rhythm ventricular rate is 148 OK interval, QRS duration is 126 QT/QTc is 284/445 review of this EKG reveals a wide QRS complex with a rate of 148 to looks like a patient is in a V. tach Medical Decision Making - Lab Data Result diagrams: 05/31/17 13:03 05/31/17 13:03 Lab Results 05/31/17 05/31/17 05/31/17 Range/Units 13:03 13:03 13:03 WBC 20.1 H (3.8-10.6) k/uL RBC 3.47 L (3.80-5.40) m/uL Hgb 8.2 L (11.4-16.0) gm/dL Hct 28.9 L (34.0-46.0) % MCV 83.3 (80.0-100.0) fL MCH 23.5 L (25.0-35.0) pg MCHC 28.2 L (31.0-37.0) g/dL RDW 17.5 H (11.5-15.5) % Plt Count 701 H (150-450) k/uL Neutrophils % 74 % Lymphocytes % 20 % Monocytes % 3 % Eosinophils % 2 % Basophils % 1 % Neutrophils # 14.9 H (1.3-7.7) k/uL Lymphocytes # 3.9 (1.0-4.8) k/uL Monocytes # 0.6 (0-1.0) k/uL Eosinophils # 0.3 (0-0.7) k/uL Basophils # 0.1 (0-0.2) k/uL Manual Slide Review Performed Hypochromasia Marked Poikilocytosis Slight Anisocytosis Slight PT (9.0-12.0) sec INR (<1.2) APTT (22.0-30.0) sec D-Dimer (<0.60) mg/L FEU Sodium 140 (137-145) mmol/L Potassium 4.3 (3.5-5.1) mmol/L Chloride 103 (98-107) mmol/L Carbon Dioxide 17 L (22-30) mmol/L Anion Gap 20 mmol/L BUN 16 (7-17) mg/dL Creatinine 0.90 (0.52-1.04) mg/dL Est GFR (CKD-EPI)AfAm 70 (>60 ml/min/1.73 sqM) Est GFR (CKD-EPI)NonAf 61 (>60 ml/min/1.73 sqM) Glucose 363 H (74-99) mg/dL Calcium 9.3 (8.4-10.2) mg/dL Total Bilirubin 0.7 (0.2-1.3) mg/dL AST 39 H (14-36) U/L ALT 25 (9-52) U/L Alkaline Phosphatase 133 H (38-126) U/L Total Creatine Kinase 30 (30-135) U/L CK-MB (CK-2) 0.8 (0.0-2.4) ng/mL CK-MB (CK-2) Rel Index 2.7 Troponin I 0.021 (0.000-0.034) ng/mL Total Protein 6.1 L (6.3-8.2) g/dL Albumin 3.4 L (3.5-5.0) g/dL 05/31/17 Range/Units 13:03 WBC (3.8-10.6) k/uL RBC (3.80-5.40) m/uL Hgb (11.4-16.0) gm/dL Hct (34.0-46.0) % MCV (80.0-100.0) fL MCH (25.0-35.0) pg MCHC (31.0-37.0) g/dL RDW (11.5-15.5) % Plt Count (150-450) k/uL Neutrophils % % Lymphocytes % % Monocytes % % Eosinophils % % Basophils % % Neutrophils # (1.3-7.7) k/uL Lymphocytes # (1.0-4.8) k/uL Monocytes # (0-1.0) k/uL Eosinophils # (0-0.7) k/uL Basophils # (0-0.2) k/uL Manual Slide Review Hypochromasia Poikilocytosis Anisocytosis PT 10.2 (9.0-12.0) sec INR 1.0 (<1.2) APTT 22.3 (22.0-30.0) sec D-Dimer 2.87 H (<0.60) mg/L FEU Sodium (137-145) mmol/L Potassium (3.5-5.1) mmol/L Chloride (98-107) mmol/L Carbon Dioxide (22-30) mmol/L Anion Gap mmol/L BUN (7-17) mg/dL Creatinine (0.52-1.04) mg/dL Est GFR (CKD-EPI)AfAm (>60 ml/min/1.73 sqM) Est GFR (CKD-EPI)NonAf (>60 ml/min/1.73 sqM) Glucose (74-99) mg/dL Calcium (8.4-10.2) mg/dL Total Bilirubin (0.2-1.3) mg/dL AST (14-36) U/L ALT (9-52) U/L Alkaline Phosphatase (38-126) U/L Total Creatine Kinase (30-135) U/L CK-MB (CK-2) (0.0-2.4) ng/mL CK-MB (CK-2) Rel Index Troponin I (0.000-0.034) ng/mL Total Protein (6.3-8.2) g/dL Albumin (3.5-5.0) g/dL Critical Care Time Total Critical Care Time: 60 Critical Care Time: Was accompanying the patient, considering her very critical condition leg respiratory failure family gave me consent to intubate her, patient was intubated using etomidate and sucks blood pressure systolic was over 200 after giving 20 mg of etomidate and sucks patient was intubated using kaleidoscope, chest x-ray was done to confirm the correct placement of the ET tube, were trying to do the ABGs him and noticed that she has lost pulse ,, following the ACLS protocol resuscitation was started, UC TO CONFIRM SOME CARDIAC ACTIVITY MONITOR CONFIRMED THE V. FIB PATIENT WAS GIVING AMIODARONE THEN WE NOTICED THAT PATIENT HAS TORSADE AT THAT TIME MAGNESIUM IV.. I NOTICED THAT THE WHITE COUNT IS QUITE ELEVATED GREATER THAN 20 BUT D-DIMER IS ELEVATED CHEST X-RAY CONFIRMED PULMONARY EDEMA FAMILY WAS BROUGHT IN THE ROOM THEY WITNESSED THE CPR FOR 15 MINUTES AND THEN THE DAUGHTER DECIDED THAT SHE WANTS TO TERMINATE THE CODE PLEASE SEE THE CODE SHEET FOR THE FULL DETAILS BASED ON THE FAMILY'S ADVICE THE CODE WAS TERMINATED PLACE REFERRED TO THE CODE SHEET FOR THE EXACT TIME OF "TERMINATION. Family doctor Dr. Feldman was not available, contacted Dr. Seay informed and informed him about this unfortunate event Disposition Clinical Impression: Respiratory failure, Asystole Clinical Impression: (Ruled Out): For cardiopulmonary resuscitation Disposition: Condition: Poor Referrals: Stephanie Feldman MD [Primary Care Provider] - 1-2 days Preliminary Cause of : Daughter requested to terminate the code, refer to code sheet for the exact
== END 2017-05-31 14:30 | disposition expired ==
LOC: EC 12:54
DX: I46.9 Cardiac arrest, cause unspecified (principal); J96.90 Respiratory failure, unspecified, unspecified whether with hypoxia or hypercapnia; I48.91 Unspecified atrial fibrillation; I10 Essential (primary) hypertension; E11.40 Type 2 diabetes mellitus with diabetic neuropathy, unspecified; G47.30 Sleep apnea, unspecified; Z99.89 Dependence on other enabling machines and devices; F32.9 Major depressive disorder, single episode, unspecified; F41.9 Anxiety disorder, unspecified; Z86.14 Personal history of Methicillin resistant Staphylococcus aureus infection; Z79.4 Long term (current) use of insulin; Z79.899 Other long term (current) drug therapy; Z88.6 Allergy status to analgesic agent; Z88.8 Allergy status to other drugs, medicaments and biological substances
CPT/HCPCS: 43753; 36415; 94002; 93005; 85379; 80053; 82550; 82553; 84484; 85025; 85610; 85730; 71045; 99291; 92950; 31500; 96374; J0330; J0282; J3475; J0171; 96372